=== PATIENT | male | born 1930 | race Caucasian/White ===

== ENCOUNTER 2017-11-23 19:50 | Inpatient (IN) | payer OTHER, MEDICARE ==
[~2017-11-23] VITALS: Ht 185.4 cm; Wt 96.8 kg
--- NOTE | 2017-11-23 19:53 | ED GI/GU/ABDOMINAL COMPLAINT ---
History of Present Illness General Chief Complaint: Abdominal Pain/Flank Pain Stated Complaint: L SIDED UPPER ABD Source: patient, family, EMS Exam Limitations: no limitations Vital Signs & Intake/Output Vital Signs & Intake/Output Vital Signs Date Time Temp Pulse Resp B/P B/P Pulse O2 O2 Flow FiO2 Mean Ox Delivery Rate 11/26 0000 Nasal 3.0L Cannula 11/25 2246 98.7 63 24 107/75 96 Nasal 3.0L Cannula 11/25 2033 94 Nasal 3.0L Cannula 11/25 1600 94 Nasal 3.0L Cannula 11/25 1508 98.1 107 18 150/98 96 Nasal 3.0L Cannula 11/25 1121 95 Nasal 3.0L Cannula 11/25 0937 80 142/80 11/25 0800 93 Nasal 3.0L Cannula ED Intake and Output 11/26 0000 11/25 1200 Intake Total 970 490 Output Total 150 Balance 970 340 Intake, IV 250 250 Intake, Oral 720 240 Output, Urine 150 Patient 222 lb Weight Weight Bed scale Measurement Method Allergies Coded Allergies: No Known Allergies (11/23/17) Reconcile Medications Aspirin (Ecotrin*) 81 MG TABLET.DR 1 TAB PO DAILY HEART/BLOOD (Reported) Cholecalciferol (Vitamin D3) (Vitamin D) (Unknown Strength) CAPSULE (Unknown Dose) PO DAILY SUPPLEMENT (Reported) Lisinopril 5 MG TABLET 1 TAB PO DAILY BP (Reported) Sertraline HCl 25 MG TABLET 1 TAB PO DAILY MENTAL HEALTH (Reported) Tiotropium Hampton (Spiriva) 18 MCG CAP.W.DEV 1 CAP INH DAILY COPD (Reported) Triage Nurses Notes Reviewed? yes HPI: 87 y/o male with history of HTN, COPD, Waldenstrom macroglobulinemia on rituxin every other month who presents from home via EMS for sudden onset of respiratory distress and left sided chest pain at 6 pm after eating dinner. He states the pain started first. NO fever or chills. He denies vomiting or aspirating. No trauma at home. Daughter reports he has been doing fine until this evening. Past History Travel History Traveled to [place] past 21 day No Medical History Any Pertinent Medical History? see below for history Cardiovascular: hypertension Respiratory: COPD Blood Disorders: waldenstrom macroglobulimenia Surgical History Surgical History: non-contributory Psychosocial History What is your primary language Niuean Family History Hx Contributory? No Review of Systems Review of Systems Constitutional: Denies: chills, fever. EENTM: Reports: no symptoms. Respiratory: Reports: cough, short of breath. Denies: sputum production. Cardiovascular: Reports: chest pain. GI: Reports: abdominal pain. Genitourinary: Reports: no symptoms. Musculoskeletal: Reports: back pain. Skin: Reports: no symptoms. Neurological/Psychological: Reports: no symptoms. Hematologic/Endocrine: Denies: bruising, bleeding, polyuria, polydipsia. Immunologic/Allergic: Reports: no symptoms. All Other Systems: Reviewed and Negative Physical Exam Physical Exam General Appearance: well developed/nourished, alert, awake, anxious, mild distress, moderate distress Head: atraumatic, normal appearance Eyes: Bilateral: normal appearance, PERRL, EOMI. Ears, Nose, Throat, Mouth: hearing grossly normal, moist mucous membrane Neck: normal inspection, supple, full range of motion Respiratory: decreased breath sounds, accessory muscle use, crackles, rhonchi, respiratory distress, LEFT CHEST WALL TENDERNESS Cardiovascular: regular rate/rhythm, normal peripheral pulses Peripheral Pulses: 2+ radial (R), 2+ radial (L) Gastrointestinal: normal bowel sounds, soft, non-tender Back: normal inspection, normal range of motion Extremities: normal range of motion Neurologic/Psych: no motor/sensory deficits, awake, alert, oriented x 3 Skin: intact, normal color, warm/dry Core Measures ACS in differential dx? Yes Sepsis Present: No Sepsis Focused Exam Completed? No ED Sepsis Exam Date of Focused Sepsis Exam: 11/23/17 Time of Focused Sepsis Exam: 1954 Sepsis Cardiac Exam: Tachycardia Sepsis Resp Exam: Ronchi Sepsis Cap Refill Exam: <2 Sec Sepsis Peripheral Pulse Exam: Normal Sepsis Peripheral Pulse Location: Posterior Tibialis Sepsis Skin Color Exam: Cyanotic Skin Temp/Moisture Exam: Warm/Dry Progress Differential Diagnosis: AMI, PNEUMONIA, BRONCHITIS, PE, AMI, KIDNEY STONE, PYELONEPHRITIS, Plan of Care: Orders Procedure Date/time Status XRY-PORTABLE CHEST XRAY 11/26 599 Active CBC WITHOUT DIFFERENTIAL 11/26 599 Active BASIC ELECTROLYTES PLUS BUN&CR 11/26 599 Active Precautions 11/25 1442 Active Current Medications Sig/Eduin Start time Last Medication Dose Stop Time Status Admin Azithromycin 500 MG Q24H 11/25 2300 AC 11/25 (Zithromax) 2213 Dextrose/Water 250 ML (D5W) Albuterol Sulfate 3 ML BID 11/24 2199 AC 11/25 (Proventil) 2028 Senna 187 MG AT BEDTIME 11/24 2199 AC 11/25 (Senokot) 221 Docusate Sodium 100 MG DAILY NEEDED PRN 11/25 1999 AC 11/25 (Colace) 0936 Polyethylene Glycol 17 GM DAILY 11/24 1956 AC 11/25 (Miralax) 0936 Aspirin Buffered 81 MG DAILY 11/24 1000 AC 11/25 (Ecotrin) 0937 Ceftriaxone Sodium 1,000 MG DAILY 11/24 1000 AC 11/25 (Rocephin) 0936 Cholecalciferol 1,000 IU DAILY 11/24 1000 AC 11/25 (Vitamin D) 0937 Lisinopril 5 MG DAILY 11/24 1000 AC 11/25 (Prinivil) 0937 Sertraline HCl 25 MG DAILY 11/24 1000 AC 11/25 (Zoloft) 0937 Tiotropium Hampton 1 PUF DAILY 11/24 1000 AC 11/25 (Spiriva) 0943 Acetaminophen 1,000 MG Q6P PRN 11/23 2330 AC (Ofirmev) N/A 1 UNIT (No Carrier) Acetaminophen 650 MG Q6P PRN 11/23 2315 AC 11/24 (Tylenol) 1855 Heparin Sodium 5,000 UNIT Q8 11/23 2314 AC 11/26 (Porcine) 0518 Laboratory Tests 11/25/17 1000: Fluid WBC Cancelled, Fld Total RBCs Counted Cancelled 11/25/17 1000: Fluid Albumin Cancelled 11/25/17 0700: Fluid Total Protein Cancelled 11/25/17 0656: Anion Gap 13, Estimated GFR > 60, BUN/Creatinine Ratio 37.8 H, PT 12.7 H, INR 1.16, APTT 33, CBC w Diff MAN DIFF ORDERED, RBC 4.43 L, MCV 86.9, MCH 29.0, MCHC 33.4, RDW 14.5, MPV 9.2, Gran % 91.1 H, Lymphocytes % 5.3 L, Monocytes % 3.5, Eosinophils % 0.1, Basophils % 0, Absolute Granulocytes 22.4 H, Segmented Neutrophils 88 H, Band Neutrophils 8 H, Absolute Lymphocytes 1.3, Lymphocytes 1 L, Monocytes 3, Absolute Monocytes 0.9 H, Absolute Eosinophils 0, Absolute Basophils 0, Platelet Estimate ADEQUATE, Normocytic RBCs VERIFIED, Normochromic RBCs VERIFIED Microbiology 11/25 699 BODY FLUID: Body Fluid Culture - CAN Cancelled: Cancelled via OE: Per Decision 11/25 699 BODY FLUID: Gram Stain - CAN Cancelled: Cancelled via OE: Per MD Decision Diagnostic Imaging: Viewed by Me: Radiology Read, CT Scan. Discussed w/RAD: Radiology Read, CT Scan. Radiology Impression: PATIENT: VINCENZO AVELAR PRESENT AGE: 87 PATIENT ACCOUNT NO: [id number] : 32 LOCATION: [facility] ORDERING PHYSICIAN: Erica Mathis MD SERVICE DATE: 11/23/17 EXAM TYPE: CAT - CTA CHEST-PULMONARY EMBOLISM EXAMINATION: CT PULMONARY EMBOLISM STUDY CLINICAL INFORMATION: Left-sided pain. Non-Hodgkin's lymphoma. COMPARISON: 02/20/2017. TECHNIQUE: Contiguous helical images of the chest were obtained following the administration of IV contrast. Multiplanar reconstructions were performed. MIPS were obtained and reviewed. DLP: 962 mGy-cm. CONTRAST: 120 mL of Optiray 350 were administered without incident. FINDINGS: The heart is of normal size. There is no pericardial effusion. The great vessels are unremarkable. Specifically, there is no pulmonary arterial filling defect. There is no CT evidence for pulmonary embolism. There are no chest wall masses. Review of lung windows demonstrates a yzavi-ex-qxyatomb left pleural effusion. There is associated passive atelectasis within the left lower lobe. There is apparent atelectasis within the right lower lobe. Limited evaluation of the upper abdomen demonstrates that the liver is of normal size and attenuation without focal lesions. There is a 16 mm calculus within the gallbladder lumen. There is no gallbladder wall thickening or pericholecystic fluid. Normal adrenal glands are identified. IMPRESSION: No CT evidence for pulmonary embolism. [id number] left pleural effusion with associated airspace disease. Cholelithiasis without evidence of cholecystitis. DICTATED BY: iCrilo Oneal MD DATE/TIME DICTATED:11/11 GUN PERFORATOR LOADER:DEBO DATE/TIME TRANSCRIBED:11/23/172228 CONFIDENTIAL, DO NOT COPY WITHOUT APPROPRIATE AUTHORIZATION. <Electronically signed in Other Vendor System> SIGNED BY: Cirilo Oneal MD 11/23/172236 CXR Impression: PATIENT: VINCENZO AVELAR PRESENT AGE: 87 PATIENT ACCOUNT NO: [id number] : 32 LOCATION: [facility] ORDERING PHYSICIAN: Erica Mathis MD SERVICE DATE: 11/23/17 EXAM TYPE: RAD - XRY-PORTABLE CHEST XRAY EXAMINATION: XR PORTABLE CHEST CLINICAL INFORMATION: Respiratory distress, left-sided chest pain COMPARISON: None TECHNIQUE: Portable frontal view of the chest was obtained. FINDINGS: Hypoinflation with basilar atelectasis. Lower lobe opacity is asymmetrically prominent on the left suggesting there may be a left lower lobe consolidation or effusion. The cardiac silhouette is partially obscured. IMPRESSION: Bibasilar atelectasis and possible left lower lobe pneumonia or effusion DICTATED BY: Cole Wheeler MD DATE/ TIME DICTATED:11/23/172107 GUN PERFORATOR LOADER:DEBO DATE/TIME TRANSCRIBED: 11/23/172107 CONFIDENTIAL, DO NOT COPY WITHOUT APPROPRIATE AUTHORIZATION. < Electronically signed in Other Vendor System> SIGNED BY: Cole Wheeler MD 11/23/172112 Initial ED EKG: SINUS TACHYCARDIA Rhythm Strip: sinus tachycardia Departure Departure Disposition: STILL A PATIENT Condition: Stable Clinical Impression Primary Impression: Pneumonia Secondary Impressions: Respiratory distress Referrals: Pedrito Nelson MD (PCP/Family) Departure Forms: Customer Survey General Discharge Information Admission Note Spoke With: Lopez Cruz MD Documentation of Exam: Documentation of any treatments & extenuating circumstances including Concerns Regarding Discharge (functional status, medication knowledge or non-compliance, living conditions, etc.) that warrant an admission rather than observation: [TRC /NEBS, IV STEROIDS, IV ABX, MONITOR I/O, OXYGEN SUPPLEMENTATION, F/U CULTURES] Critical Care Note Critical Care Note Critical Care Time: 30-74 min
[2017-11-23 20:32] LABS: ABSOLUTE BASOPHIL COUNT 0 /CUMM (0.0-0.2); ABSOLUTE EOSINOPHIL COUNT 0.2 /CUMM (0.0-0.7); ABSOLUTE GRANULOCYTE CT 19.4 /CUMM (1.4-6.5); ABSOLUTE LYMPH COUNT 4.8 /CUMM (1.2-3.4); ABSOLUTE MONOCYTE COUNT 0.8 /CUMM (0.10-0.60); BASOPHIL % 0.2 % (0.0-2.0); EOSINOPHIL % 0.7 % (0-5); GRANULOCYTE % 76.9 % (42.2-75.2); HEMATOCRIT 42.6 % (42-52); MEAN CORPUSCULAR HGB 28.7 PG (27.0-31.0); MEAN CORPUSCULAR HGB CONC 33.6 G/DL (33.0-37.0); MEAN CORPUSCULAR VOLUME 85.4 FL (80.0-94.0); PLATELET COUNT 399 /CUMM (130-400); RBC DISTRIBUTION WIDTH 14.1 % (11.5-14.5); RED BLOOD CELL CT 4.99 /CUMM (4.70-6.10); WHITE BLOOD CELL COUNT 25.2 /CUMM (4.8-10.8)
[2017-11-23 20:47] LABS: PTT 29 SEC (25-37)
--- NOTE | 2017-11-23 21:13 | RADIOLOGY REPORT ---
EXAMINATION: XR PORTABLE CHEST CLINICAL INFORMATION: Respiratory distress, left-sided chest pain COMPARISON: None TECHNIQUE: Portable frontal view of the chest was obtained. FINDINGS: Hypoinflation with basilar atelectasis. Lower lobe opacity is asymmetrically prominent on the left suggesting there may be a left lower lobe consolidation or effusion. The cardiac silhouette is partially obscured. IMPRESSION: Bibasilar atelectasis and possible left lower lobe pneumonia or effusion
[2017-11-23] MEDS ORDERED: SPIRIVA18 MCG INH (21:29)
[2017-11-23] MEDS ORDERED: VITAMIN D2000 UNIT PO (21:29)
[2017-11-23] MEDS ORDERED: SERTRALINE HCL25 MG PO (21:29)
[2017-11-23] MEDS ORDERED: ASPIRIN EC81 M1 PO (21:29)
[2017-11-23] MEDS ORDERED: LISINOPRIL5 M1 PO (21:29)
--- NOTE | 2017-11-23 22:37 | CT SCAN REPORT ---
EXAMINATION: CT PULMONARY EMBOLISM STUDY CLINICAL INFORMATION: Left-sided pain. Non-Hodgkin's lymphoma. COMPARISON: 02/20/2017. TECHNIQUE: Contiguous helical images of the chest were obtained following the administration of IV contrast. Multiplanar reconstructions were performed. MIPS were obtained and reviewed. DLP: 962 mGy-cm. CONTRAST: 120 mL of Optiray 350 were administered without incident. FINDINGS: The heart is of normal size. There is no pericardial effusion. The great vessels are unremarkable. Specifically, there is no pulmonary arterial filling defect. There is no CT evidence for pulmonary embolism. There are no chest wall masses. Review of lung windows demonstrates a yhuua-zo-ugnziprl left pleural effusion. There is associated passive atelectasis within the left lower lobe. There is apparent atelectasis within the right lower lobe. Limited evaluation of the upper abdomen demonstrates that the liver is of normal size and attenuation without focal lesions. There is a 16 mm calculus within the gallbladder lumen. There is no gallbladder wall thickening or pericholecystic fluid. Normal adrenal glands are identified. IMPRESSION: No CT evidence for pulmonary embolism. [id number] left pleural effusion with associated airspace disease. Cholelithiasis without evidence of cholecystitis.
--- NOTE | 2017-11-23 22:54 | CT SCAN REPORT ---
EXAMINATION: CT ABDOMEN AND PELVIS WITH CONTRAST CLINICAL INFORMATION: Severe left abdominal pain. COMPARISON: 02/20/2017 PET/CT. TECHNIQUE: Multidetector volumetric imaging was performed of the abdomen and pelvis following IV administration of 120 mL of Optiray 350 intravenous contrast. Sagittal and coronal reformatted images were obtained on the technologist's workstation. DLP: 963 mGy-cm FINDINGS: LUNG BASES: Left basilar atelectasis/consolidation and small pleural effusion. LIVER, GALLBLADDER, AND BILIARY TREE: Diffuse fatty infiltration of liver. Cholelithiasis. No biliary ductal dilatation. PANCREAS: Unremarkable. SPLEEN: Unremarkable. ADRENAL GLANDS: Unremarkable. KIDNEYS AND URETERS: There are several subcentimeter cortical cysts bilaterally. Nephrograms are symmetric. No hydronephrosis or calculi. BLADDER: Unremarkable. GASTROINTESTINAL TRACT: The small and large bowel are unremarkable. The appendix is not identified. ABDOMINAL WALL: Incompletely descended left testis along the left spermatic cord, unchanged. LYMPH NODES: Normal. VASCULAR: Atherosclerotic calcifications. PELVIC VISCERA: Enlarged and heterogeneous prostate. OSSEOUS STRUCTURES: Severe degenerative disc disease at L4-L5. IMPRESSION: No focal inflammatory process or obstruction. Cholelithiasis. Diffuse fatty infiltration of liver. Incompletely descended left testicle, unchanged. Small left basilar consolidation and pleural effusion.
--- NOTE | 2017-11-23 23:07 | History & Physical ---
German Ascencio MD 11/23/17 0447: General Information and HPI MD Statement: I have seen and personally examined VINCENZO AVELAR and documented this H&P. The patient is a 87 year old M who presented with a patient stated chief complaint of [R sided chest pain and SOB]. Source of Information: patient, family Exam Limitations: dementia History of Present Illness: Patient is an 87-year-old male with a PMH significant for HTN, COPD, Waldenstrom 's macroglobulinemia, vascular dementia who was brought in by ambulance for left -sided chest pain and dyspnea. History was obtained from patient's daughter and GUERLINE Pace. Patient was apparently in his usual state of health up until the evening of admission at approximately 1930 p.m. Patient's whom he lives with called her daughter stating that the patient was having difficulty breathing and complaining of chest pain. When the daughter arrived house the patient was delivered over in pain and having difficulty breathing. She visits the house regularly and states that she had noted no change in breathing and the patient had not been complaining of any new symptoms prior to the onset of chest pain shortness of breath. He has a chronic cough secondary to COPD which had not worsened recently. He is able to take in a regular diet and has not been witnessed choking on his food or coughing after swallowing. He had not had any nausea, vomiting, fever, chills, diarrhea. He also had no sick contacts. Allergies/Medications Allergies: Coded Allergies: No Known Allergies (11/23/17) Home Med list Aspirin (Ecotrin*) 81 MG TABLET.DR 1 TAB PO DAILY HEART/BLOOD (Reported) Cholecalciferol (Vitamin D3) (Vitamin D) (Unknown Strength) CAPSULE (Unknown Dose) PO DAILY SUPPLEMENT (Reported) Lisinopril 5 MG TABLET 1 TAB PO DAILY BP (Reported) Sertraline HCl 25 MG TABLET 1 TAB PO DAILY MENTAL HEALTH (Reported) Tiotropium [place] (Spiriva) 18 MCG CAP.W.DEV 1 CAP INH DAILY COPD (Reported) Past History Travel History Traveled to [place] past 21 day No Medical History Neurological: dementia Cardiovascular: hypertension Respiratory: COPD Blood Disorders: waldenstrom macroglobulimenia Surgical History Surgical History: non-contributory Past Family/Social History Family History Relations & Conditions if any Relation not specified for: FH: diabetes mellitus Psychosocial History Where do you live? Home Who Do You Live With? spouse Services at Home: daughter comes twice per day to assist with medications Primary Language: Icelandic Smoking Status: Former Smoker (50+ pack years) ETOH Use: denies use Illicit Drug Use: denies illicit drug use Living Will? yes Functional Ability Ambulation: cane IADLs Needs Assist: medication admin. Review of Systems Review of Systems Constitutional: Denies: chills, fever. EENTM: Reports: no symptoms. Cardiovascular: Reports: chest pain (L sided chest pain). Respiratory: Reports: cough, short of breath. GI: Reports: no symptoms. Genitourinary: Reports: no symptoms. Musculoskeletal: Reports: no symptoms. Exam & Diagnostic Data Last 24 Hrs of Vital Signs/I&O Vital Signs Date Time Temp Pulse Resp B/P B/P Pulse O2 O2 Flow FiO2 Mean Ox Delivery Rate 11/231 98.1 96 20 160/82 95 11/23 2317 98.9 92 24 132/65 94 Nasal 2.0L Cannula 11/23 2122 99.3 109 26 151/76 11/23 2008 94 11/23 1959 98.7 104 26 145/100 94 Room Air Intake & Output 11/24 0800 11/24 0000 11/23 1600 Intake Total 115 Output Total Balance 115 Intake, IV 115 Patient 200 lb Weight Weight Reported by Patient Measurement Method Physical Exam General Appearance Alert, Cooperative, No Acute Distress, oriented to person and time but not place Skin Temp/Moisture Exam: Warm/Dry Sepsis Skin Exam (color): Normal for Ethnicity Neck No JVD Cardiovascular Regular Rate, Normal S1, Normal S2 Lungs diffuse rhonchi worse on the L lower lung field Abdomen Normal Bowel Sounds, Soft, No Tenderness Neurological Normal Speech, Normal Tone, Sensation Intact, Cranial Nerves 3-12 NL Extremities No Clubbing, No Cyanosis, No Edema Last 24 Hrs of Labs/Luis F: Laboratory Tests 11/23/17 2030: pH 7.42, pCO2 26 L, pO2 66 L, HCO3 17 L, ABG O2 Sat (Measured) 93.0 L, P-50 (Temp Corrected) N, Carboxyhemoglobin 0.3 L, O2 Concentration % RA/, Temperature 98.7, Phlebotomy Draw Site RIGHT BRACHIAL 11/23/17 2020: Anion Gap 14, Estimated GFR > 60, BUN/Creatinine Ratio 20.0, Glucose 211 H, Lactic Acid 1.9, Calcium 9.5, Total Bilirubin 1.3, AST 20, ALT 31, Alkaline Phosphatase 113, Troponin I < 0.01, Ooa-A-Wgcwkiojivt Pept 309 H, Total Protein 7.2, Albumin 4.1, Globulin 3.1, Albumin/Globulin Ratio 1.3, PT 12.0, INR 1.14, APTT 29, D-Dimer High Sensitivty 399 H, CBC w Diff MAN DIFF ORDERED, RBC 4.99, MCV 85.4, MCH 28.7, MCHC 33.6, RDW 14.1, MPV 8.0, Gran % 76.9 H, Lymphocytes % 19.2 L, Monocytes % 3.0, Eosinophils % 0.7, Basophils % 0.2, Absolute Granulocytes 19.4 H, Segmented Neutrophils 67, Band Neutrophils 8 H, Absolute Lymphocytes 4.8 H, Lymphocytes 21, Monocytes 2, Absolute Monocytes 0.8 H, Eosinophils 1, Absolute Eosinophils 0.2, Basophils 1, Absolute Basophils 0, Platelet Estimate ADEQUATE, Normocytic RBCs VERIFIED, Normochromic RBCs VERIFIED Microbiology 11/25 31 URINE ROUT: Legionella Antigen - ORD 11/25 31 URINE ROUT: Streptococcus pneumoniae Antigen (M - ORD 11/23 2133 NASOPHARYN: Influenza Virus A & B Rapid Smear - COMP 11/23 2099 BLOOD: Blood Culture - RECD 11/24 2019 BLOOD: Blood Culture - RECD Diagnostic Data EKG Results sinus tachy, HR 109, RBBB, QTc 475, Normal axis CXR Results Bibasilar atelectasis and possible left lower lobe pneumonia or effusion Other Results CTA chest No CT evidence for pulmonary embolism. Xvayd-mu-gmzijfqx left pleural effusion with associated airspace disease. Cholelithiasis without evidence of cholecystitis. CT abd/pelvis No focal inflammatory process or obstruction. Cholelithiasis. Diffuse fatty infiltration of liver. Incompletely descended left testicle, unchanged. Small left basilar consolidation and pleural effusion. Assessment/Plan Assessment: Patient is an 87-year-old male with a PMH significant for HTN, COPD, Waldenstrom 's macroglobulinemia, vascular dementia who was brought in by ambulance for left -sided chest pain and dyspnea. Patient was in his usual state of health until this evening when he began to have left-sided chest pain shortness of breath. SOB appears to be related to the chest pain as his pain is under control he is breathing normally. CXR showing bibasilar atelectasis left lower lobe opacity. Labs significant for WBC 25.2, bandemia, d-dimer 399(PE ruled out by CTA chest), ABG 7.42// Problem list #Pneumonia #Chronic problems including HTN, COPD, Waldenstrom macroglobulinemia on Rituxan, dementia Plan -Admit to general medicine floor -IV azithromycin and ceftriaxone -Follow-up blood and sputum cultures -Lactic acid -Urine antigens for strep pneumonia and legionella -TRC/nebs Diet: Heart healthy DVT prophylaxis: Subcutaneous heparin, ALPS CODE STATUS: DNR/DNI As Ranked By This Provider Problem List: 1. Pneumonia Core Measures/Misc (06/10) Acute Coronary Syndrome ACS Diagnosis: No Congestive Heart Failure Congestive Heart Failure Diagnosis No Cerebrovascular Accident CVA/TIA Diagnosis: No VTE (View Protocol) VTE Risk Factors Cancer/chemo/othr therapy No Mechanical VTE Prophylaxis d/t N/A MechProphylax Ordered No VTE Pharm Prophylaxis d/t NA PharmProphylax ordered Sepsis (View protocol) Sepsis Present: No Roya Magana MD 11/24/17 0018: Resident Review Statement Resident Statement: examined this patient, discussed with application internship, agreed with application internship, discussed with family, reviewed EMR data (avail), reviewed images, amended to note Other Findings: 87-year-old male with past medical history of hypertension, Waldenstrom's macroglobulinemia on Rituxin, COPD not on home O2 and dementia brought in by EMS for acute onset of severe left-sided chest pain and dyspnea which started this evening after he finished dinner around 6 PM. Patient lives at home with and history is provided by the daughter. She denies any fevers or chills, chest trauma, nausea or vomiting or diarrhea, or sick contacts. He has a baseline nonproductive cough and wheezing. Pt gets [facility]. 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 Vitals-temperature 99.3, heart rate of 109, respiratory rate 25, blood pressure 151/76, saturating 94% on room air On exam patient is AAO 2, rhonchi and left lower chest wall and generalized coarse breath sounds and wheezing throughout, nondistended abdomen, normal bowel sounds, no pedal edema Pertinent labs-white count of 25.2 with 8 bands ABG-7.42/26/66/17/93 Chest x-ray consistent with possible left lower lobe consolidation and atelectasis CTA negative for PE, small to mod left pleural effusion and airspace disease CT abdomen pelvis shows no acute abnormalities Assessment Community-acquired pneumonia COPD not in exacerbation Hypertension Dementia Waldenstrom's macroglobulinemia on Rituxin Plan Admit to the general medicine floor IV ceftriaxone and azithromycin Patient received 125mg of IV Solu-Medrol in the ER; will hold of steroids for now. Re-evaluate in am Sputum and blood cultures Check urine Legionella and strep pneumo antigens Check lactate levels Trend trops and EKG TRC nebs Oxygen for comfort Consider Pulmonary consult per family request Resume patient's home medications Subcutaneous heparin for DVT prophylaxis Pain control with IV Tylenol DNR/DNI Follow attending recommendations Lopez Cruz 11/24/17 0152: Attending MD Review Statement Attending Statement Attending MD Statement: examined this patient, discuss w/resident/PA/MANAGER ANIMATION, agreed w/resident/PA/MANAGER ANIMATION, reviewed EMR data (avail), reviewed images, amended to note Attending Assessment/Plan: CC: Left sided chest/abdomen pain PMH: HTN, COPD, dementia, Waldenstrm's macroglobulinemia on rituximab, Low- grade non-Hodgkin's lymphoma History is obtained from patient's daughter. After dinner today patient complained of severe left-sided chest pain/upper abdominal pain associated with difficulty breathing, shallow breathing and distress. Daughter lives next door, patient's called her when patient complained of these symptoms and patient appeared sick so they rushed him to ER. Patient has chronic cough which has not changed recently, chronic wheezing which is unchanged. There are no sick contacts. Other than the pain patient does not offer any other symptoms. Review of systems is limited but grossly unremarkable. No choking on food, no nausea, no vomiting or presyncopal episode. Vitals: T max 99.3, pulse 104, RR 26, blood pressure 140/ 100 on arrival improved to 132/65, saturating 94% on 2 L nasal cannula On exam: A O 2, cooperative, no acute distress, neck supple, JVD normal, no lymphadenopathy, mucosa dry, no focal neurological deficit, trace leg edema, no obvious skin rashes or inflammation CVS: S1-S2, RRR. RS: Rhonchi left base, no obvious wheezing. Abdomen: Soft, NT, ND, bowel sounds present. CTA chest, CT abdomen and pelvis with IV contrast: No CT evidence for pulmonary embolism. Qllzw-mc-gfivqtdt left pleural effusion with associated airspace disease. No focal inflammatory process or obstruction. Cholelithiasis. Diffuse fatty infiltration of liver. Incompletely descended left testicle, unchanged. Small left basilar consolidation and pleural effusion. Assessment and plan 87-year-old male with past medical history significant for HTN, COPD, dementia, Waldenstrm's macroglobulinemia on rituximab presented in the ER for sudden onset left-sided upper abdominal pain, chest pain associated with mild respiratory distress, shallow breathing. Patient has chronic cough and wheezing which is unchanged, no sick contacts, no choking. On auscultation patient has significant rhonchi on left base, no obvious wheezing heard. He is found to have significant leukocytosis and left shift, mild metabolic acidosis, hypoxia on ABG. ProBNP was 309, not significant and d-dimer 399. CTA chest ruled out pulmonary embolism but has suspicion of left sided pneumonia with mild to moderate pleural effusion. + Left lower lobe pneumonia + Left pleural effusion + History of HTN, COPD, dementia, Waldenstrm's macroglobulinemia on rituximab - Admit to general medicine - Continue O2 by nasal cannula - IV ceftriaxone and azithromycin - TRC nebulization - Strep and Legionella antigen - Obtain lactic acid - Blood culture, sputum culture if possible - Consult IR for thoracentesis (patient has history of malignancy) - 1 more set of troponin and EKGs - DVT prophylaxis with heparin - add hemoglobin A1c to the sampling - Continue rest of his home medications - Reassess for need of IV methylprednisolone in a.m. if patient has significant wheezing or hypoxia
[2017-11-23 23:51] VITALS: BP 160/82
--- NOTE | 2017-11-24 01:53 | Admission Certification ---
Admission Certification Certification Statement - As attending physician, I certify that at the time of - admission, based on clinical presentation, severity of - symptoms, need for further diagnostic testing and - therapeutic interventions, and risk of adverse outcomes - without in-hospital treatment, in my clinical assessment, - this patient requires an acute hospital stay for a minimum - of two nights or longer. I have also considered psychsocial - factors such as support system, advanced age, financial - issues, cognitive issues, and failed out-patient treatments, - past re-admission history, safety of patient, and lack of - compliance as applicable. Specific rationale supporting this admission is: Left lower lobe pneumonia
--- NOTE | 2017-11-24 06:03 | PN- Housestaff ---
Subjective Follow-up For: CAP with L pleural effusion in setting of cancer diagonsis Subjective: Patient was seen and examined at bedside. He is resting comfortably. He had no acute events overnight. He continues to complain of left-sided chest pain. He denies any palpitations, shortness breath, nausea, vomiting, fever, chills. Review of Systems Constitutional: Denies: chills, fever. Cardiovascular: Reports: chest pain. Denies: palpitations, peripheral edema. Respiratory: Reports: cough, wheezing. Denies: short of breath. Gastrointestinal: Reports: no symptoms. Genitourinary: Reports: no symptoms. Musculoskeletal: Reports: no symptoms. Objective Last 24 Hrs of Vital Signs/I&O Vital Signs Date Time Temp Pulse Resp B/P B/P Pulse O2 O2 Flow FiO2 Mean Ox Delivery Rate 11/24 0000 95 Nasal 2.0L Cannula 11/23 2351 98.1 96 20 160/82 95 11/23 2317 98.9 92 24 132/65 94 Nasal 2.0L Cannula 11/233 99.3 109 26 151/76 11/23 2008 94 11/23 1959 98.7 104 26 145/100 94 Room Air Intake & Output 11/24 0800 11/24 0000 11/23 1600 Intake Total 115 Output Total Balance 115 Intake, IV 115 Patient 209 lb Weight Weight Reported by Patient Measurement Method Physical Exam General Appearance: Alert, Cooperative, No Acute Distress, oriented to person and time but not place Skin Temp/Moisture Exam: Warm/Dry Cardiovascular: Regular Rate, Normal S1, Normal S2, L sided chest wall in mid axillary line is TTP Lungs: Rhonchi in the L lower lung field Abdomen: Normal Bowel Sounds, Soft, No Tenderness Neurological: Normal Speech, Normal Tone, Sensation Intact Extremities: No Clubbing, No Cyanosis, No Edema Current Medications: Current Medications Sig/Eduin Start time Last Medication Dose Route Stop Time Status Admin Acetaminophen 1,000 MG Q6P PRN 11/23 2330 AC N/A 1 UNIT IV Acetaminophen 650 MG Q6P PRN 11/23 2315 AC PO Albuterol Sulfate 3 ML ONCE ONE 11/23 2014 DC 11/23 INH 11/23 Albuterol Sulfate 3 ML ONCE ONE 11/23 2014 DC 11/23 INH 11/23 Albuterol Sulfate 3 ML ONCE ONE 11/24 1999 DC 11/23 INH 11/23 Aspirin Buffered 81 MG DAILY 11/24 1000 AC PO Azithromycin 500 MG Q24H 11/23 2314 AC Sodium Chloride 250 ML IV Azithromycin 500 MG ONCE ONE 11/23 2114 DC 11/23 Dextrose/Water 250 ML IV 11/23 2213 222 Ceftriaxone Sodium 1,000 MG DAILY 11/24 1000 AC IV Ceftriaxone Sodium 0 .STK-MED ONE 11/23 2146 DC .ROUTE Ceftriaxone Sodium 1,000 MG ONCE ONE 11/23 2114 DC 11/23 IV 11/23 Cholecalciferol 1,000 IU DAILY 11/24 1000 AC PO Heparin Sodium 5,000 UNIT Q8 11/23 231 AC 11/24 (Porcine) SC 0517 Ipratropium [place] 2.5 ML ONCE ONE 11/24 1999 DC 11/23 INH 11/23 Lisinopril 5 MG DAILY 11/24 1000 AC PO Magnesium Sulfate 1 GM ONCE ONE 11/23 2014 DC 11/23 Dextrose/Water 100 ML IV 11/24 13 2020 Methylprednisolone 60 MG DAILY 11/24 1000 CAN IV Methylprednisolone 125 MG ONCE ONE 11/23 2014 DC 11/23 IV 11/23 Methylprednisolone 0 .STK-MED ONE 11/24 2011 DC .ROUTE Morphine Sulfate 4 MG ONCE ONE 11/23 2044 DC 11/23 IV 11/23 Morphine Sulfate 0 .STK-MED ONE 11/23 2041 DC .ROUTE Morphine Sulfate 2 MG ONCE ONE 11/23 2014 DC 11/23 IV 11/23 Morphine Sulfate 0 .STK-MED ONE 11/24 2011 DC .ROUTE Sertraline HCl 25 MG DAILY 11/24 1000 AC PO Sodium Chloride 1,000 ML .Q20H 11/23 2314 DC IV Tiotropium [place] 1 PUF DAILY 11/24 1000 AC INH Last 24 Hrs of Lab/Luis F Results Last 24 Hrs of Labs/Mics: Laboratory Tests 11/24/17 020: Troponin I < 0.01 11/23/172029: pH 7.42, pCO2 26 L, pO2 66 L, HCO3 17 L, ABG O2 Sat (Measured) 93.0 L, P-50 (Temp Corrected) N, Carboxyhemoglobin 0.3 L, O2 Concentration % RA/, Temperature 98.7, Phlebotomy Draw Site RIGHT BRACHIAL 11/23/172019: Anion Gap 14, Estimated GFR > 60, BUN/Creatinine Ratio 20.0, Glucose 211 H, Lactic Acid 1.9, Calcium 9.5, Total Bilirubin 1.3, AST 20, ALT 31, Alkaline Phosphatase 113, Troponin I < 0.01, Zqa-Z-Bjyjonzjbau Pept 309 H, Total Protein 7.2, Albumin 4.1, Globulin 3.1, Albumin/Globulin Ratio 1.3, PT 12.0, INR 1.14, APTT 29, D-Dimer High Sensitivty 399 H, CBC w Diff MAN DIFF ORDERED, RBC 4.99, MCV 85.4, MCH 28.7, MCHC 33.6, RDW 14.1, MPV 8.0, Gran % 76.9 H, Lymphocytes % 19.2 L, Monocytes % 3.0, Eosinophils % 0.7, Basophils % 0.2, Absolute Granulocytes 19.4 H, Segmented Neutrophils 67, Band Neutrophils 8 H, Absolute Lymphocytes 4.8 H, Lymphocytes 21, Monocytes 2, Absolute Monocytes 0.8 H, Eosinophils 1, Absolute Eosinophils 0.2, Basophils 1, Absolute Basophils 0, Platelet Estimate ADEQUATE, Normocytic RBCs VERIFIED, Normochromic RBCs VERIFIED Microbiology 11/25 515 URINE ROUT: Legionella Antigen - RECD 11/25 515 URINE ROUT: Streptococcus pneumoniae Antigen (M - RECD 11/23 2133 NASOPHARYN: Influenza Virus A & B Rapid Smear - COMP 11/23 2099 BLOOD: Blood Culture - RECD 11/24 2019 BLOOD: Blood Culture - RECD Assessment/Plan Assessment: Patient is an 87-year-old male with a PMH significant for HTN, COPD, Waldenstrom 's macroglobulinemia, vascular dementia who was brought in by ambulance for left -sided chest pain and dyspnea. Patient was in his usual state of health until this evening when he began to have left-sided chest pain shortness of breath. SOB appears to be related to the chest pain as his pain is under control he is breathing normally. CXR showing bibasilar atelectasis left lower lobe opacity with pleural effusion. PE ruled out with CTA Chest Urine legionalle and strep pneumoniae ag negative Problem list #CAP #Chronic problems including HTN, COPD, Waldenstrom macroglobulinemia on Rituxan, dementia Plan - continue IV azithromycin and ceftriaxone -wean off of O2 as tolerated - no significant wheezing and saturating well on 2 L O2 NC, no need to initiate steroids -Follow-up blood and sputum cultures -TRC/nebs -patient will need diagnostic paracentesis of L pleural effusion in the setting of malignancy. An IR consult will be placed on Sunday morning and the pt will be NPO on sunday night Diet: Heart healthy DVT prophylaxis: Subcutaneous heparin, ALPS CODE STATUS: DNR/DNI Problem List: 1. Pneumonia 2. Pleural effusion Pain Ratin Pain Location: L chest Pain Goal: Pain 4 or less Pain Plan: pain pathway Tomorrow's Labs & Rationales: cbc, bep
[2017-11-24 06:28] VITALS: BP 158/82
[2017-11-24 08:48] LABS: ABSOLUTE BASOPHIL COUNT 0 /CUMM (0.0-0.2); ABSOLUTE EOSINOPHIL COUNT 0 /CUMM (0.0-0.7); ABSOLUTE GRANULOCYTE CT 28.3 /CUMM (1.4-6.5); ABSOLUTE LYMPH COUNT 0.5 /CUMM (1.2-3.4); ABSOLUTE MONOCYTE COUNT 0.5 /CUMM (0.10-0.60); BASOPHIL % 0 % (0.0-2.0); EOSINOPHIL % 0 % (0-5); GRANULOCYTE % 96.2 % (42.2-75.2); HEMATOCRIT 38.6 % (42-52); MEAN CORPUSCULAR HGB 29.2 PG (27.0-31.0); MEAN CORPUSCULAR HGB CONC 33.7 G/DL (33.0-37.0); MEAN CORPUSCULAR VOLUME 86.7 FL (80.0-94.0); MEAN PLATELET VOLUME 9.3 FL (7.4-10.4); PLATELET COUNT 288 /CUMM (130-400); RBC DISTRIBUTION WIDTH 14.2 % (11.5-14.5); RED BLOOD CELL CT 4.45 /CUMM (4.70-6.10); WHITE BLOOD CELL COUNT 29.4 /CUMM (4.8-10.8)
--- NOTE | 2017-11-24 10:20 | PN- Att Addend ---
Attending Addendum Attending Brief Note Patient seen and examined. Lying in bed. Not in any acute distress. Denies shortness of breath. Admits to productive cough. Complains of reproducible left-sided chest discomfort. Vital Signs Date Time Temp Pulse Resp B/P B/P Pulse O2 O2 Flow FiO2 Mean Ox Delivery Rate 11/24 0846 98.0 90 20 158/82 11/24 0800 94 Nasal 2.0L Cannula 11/24 0628 98.0 90 20 158/82 96 11/24 0000 95 Nasal 2.0L Cannula 11/23 2351 98.1 96 20 160/82 95 11/23 2317 98.9 92 24 132/65 94 Nasal 2.0L Cannula 11/23 2123 99.3 109 26 151/76 11/24 2007 94 11/23 1959 98.7 104 26 145/100 94 Room Air General appearance: Well-developed, not in respiratory distress. Heart: S1-S2 regular Lungs: Diffuse crackles bilaterally. Reproducible pain left lung base. Abdomen: Soft, nontender with normal bowel sounds. Extremities: No pedal edema. Skin: Intact. Laboratory Tests 11/24/17 0655: Anion Gap 17 H, Estimated GFR > 60, BUN/Creatinine Ratio 22.2, CBC w Diff MAN DIFF ORDERED, WBC Pending, RBC Pending, Hgb Pending, Hct Pending, MCV Pending, MCH Pending, MCHC Pending, RDW Pending, Plt Count Pending, MPV Pending, Gran % Pending, Lymphocytes % Pending, Monocytes % Pending, Eosinophils % Pending, Basophils % Pending, Absolute Granulocytes Pending, Segmented Neutrophils Pending, Absolute Lymphocytes Pending, Absolute Monocytes Pending, Absolute Eosinophils Pending, Absolute Basophils Pending 11/24/17 0208: Troponin I < 0.01 11/23/17 2030: pH 7.42, pCO2 26 L, pO2 66 L, HCO3 17 L, ABG O2 Sat (Measured) 93.0 L, P-50 (Temp Corrected) N, Carboxyhemoglobin 0.3 L, O2 Concentration % RA/, Temperature 98.7, Phlebotomy Draw Site RIGHT BRACHIAL 11/23/172019: Anion Gap 14, Estimated GFR > 60, BUN/Creatinine Ratio 20.0, Glucose 211 H, Hemoglobin A1c Pending, Lactic Acid 1.9, Calcium 9.5, Total Bilirubin 1.3, AST 20, ALT 31, Alkaline Phosphatase 113, Troponin I < 0.01, Apm-K-Csbjivjvsdz Pept 309 H, Total Protein 7.2, Albumin 4.1, Globulin 3.1, Albumin/Globulin Ratio 1.3 , PT 12.0, INR 1.14, APTT 29, D-Dimer High Sensitivty 399 H, CBC w Diff MAN DIFF ORDERED, RBC 4.99, MCV 85.4, MCH 28.7, MCHC 33.6, RDW 14.1, MPV 8.0, Gran % 76.9 H, Lymphocytes % 19.2 L, Monocytes % 3.0, Eosinophils % 0.7, Basophils % 0.2, Absolute Granulocytes 19.4 H, Segmented Neutrophils 67, Band Neutrophils 8 H, Absolute Lymphocytes 4.8 H, Lymphocytes 21, Monocytes 2, Absolute Monocytes 0.8 H, Eosinophils 1, Absolute Eosinophils 0.2, Basophils 1, Absolute Basophils 0, Platelet Estimate ADEQUATE, Normocytic RBCs VERIFIED, Normochromic RBCs VERIFIED Microbiology 11/24 0900 LOWER RESP: Respiratory Culture - ORD 11/24 0900 LOWER RESP: Gram Stain - ORD 11/24 05 URINE ROUT: Legionella Antigen - COMP 11/25 515 URINE ROUT: Streptococcus pneumoniae Antigen (M - COMP 11/23 2133 NASOPHARYN: Influenza Virus A & B Rapid Smear - COMP 11/23 2099 BLOOD: Blood Culture - RECD 11/24 2019 BLOOD: Blood Culture - RECD Problems: 1. Left lower lobe pneumonia. 2. Small to moderate-sized pleural effusion; likely parapneumonic. 3. COPD 4. Hypertension Plan: -Continue antibiotic therapy with ceftriaxone/azithromycin. -Follow-up CBC this morning to ensure that white cell count is trending downwards. -Obtain pulmonary consultation on account of his small to moderate-sized pleural effusion. -Patient will require repeat pulmonary imaging to determine the progress of the left-sided pleural effusion. If not improving despite treatment of pneumonia. He may require therapeutic thoracocentesis to rule out underlying malignancy.
--- NOTE | 2017-11-24 11:48 | Cons- Pulmonary ---
General Information and HPI Consulting Request Date of Consult: 11/24/17 Requested By: Dr. Mac Reason for Consult: pleural effusion Source of Information: patient Exam Limitations: no limitations History of Present Illness: 87 year old man. Consultation for a left sided effusion in a pneumonia setting. Hx of waldenstroms macroglobulinemia (lymphoplasmacytic lymphoma). 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 Hx of dementia and ht. Presented with chest discomfort and found on CT to have a small to moderate left sided pleural effusion with airspace disease. No PE. WBC worsened from 25.2 to 29.4. Has been on ceftriaxone/zithromax. Feels somewhat better than admission. No sick contacts, no travel hx. Chronic cough without obvious prodromal symptoms. Afebrile, 94% o2 saturation on 2LNC. Allergies/Medications Allergies: Coded Allergies: No Known Allergies (11/23/17) Home Med List: Aspirin (Ecotrin*) 81 MG TABLET.DR 1 TAB PO DAILY HEART/BLOOD (Reported) Cholecalciferol (Vitamin D3) (Vitamin D) (Unknown Strength) CAPSULE (Unknown Dose) PO DAILY SUPPLEMENT (Reported) Lisinopril 5 MG TABLET 1 TAB PO DAILY BP (Reported) Sertraline HCl 25 MG TABLET 1 TAB PO DAILY MENTAL HEALTH (Reported) Tiotropium [place] (Spiriva) 18 MCG CAP.W.DEV 1 CAP INH DAILY COPD (Reported) Current Medications: Current Medications Sig/Eduin Start time Last Medication Dose Route Stop Time Status Admin Acetaminophen 1,000 MG Q6P PRN 11/23 2330 AC N/A 1 UNIT IV Acetaminophen 650 MG Q6P PRN 11/23 2315 AC 11/24 PO 0953 Albuterol Sulfate 3 ML ONCE ONE 11/23 2014 DC 11/23 INH 11/23 Albuterol Sulfate 3 ML ONCE ONE 11/23 2014 DC 11/23 INH 11/23 Albuterol Sulfate 3 ML ONCE ONE 11/24 1999 DC 11/23 INH 11/23 Aspirin Buffered 81 MG DAILY 11/24 1000 AC 11/24 PO 0846 Azithromycin 500 MG Q24H 11/23 2314 AC Sodium Chloride 250 ML IV Azithromycin 500 MG ONCE ONE 11/23 2115 DC 11/23 Dextrose/Water 250 ML IV 11/23 2214 2229 Ceftriaxone Sodium 1,000 MG DAILY 11/24 1000 AC 11/24 IV 0846 Ceftriaxone Sodium 0 .STK-MED ONE 11/23 2147 DC .ROUTE Ceftriaxone Sodium 1,000 MG ONCE ONE 11/23 2114 DC 11/23 IV 11/23 211 2200 Cholecalciferol 1,000 IU DAILY 11/24 1000 AC 11/24 PO 0846 Heparin Sodium 5,000 UNIT Q8 11/23 2314 AC 11/24 (Porcine) SC 0517 Ipratropium [place] 2.5 ML ONCE ONE 11/24 1999 DC 11/23 INH 11/23 Lisinopril 5 MG DAILY 11/24 1000 AC 11/24 PO 0846 Magnesium Sulfate 1 GM ONCE ONE 11/23 2014 DC 11/23 Dextrose/Water 100 ML IV 11/24 13 2020 Methylprednisolone 60 MG DAILY 11/24 1000 CAN IV Methylprednisolone 125 MG ONCE ONE 11/23 2014 DC 11/23 IV 11/23 Methylprednisolone 0 .STK-MED ONE 11/24 2011 DC .ROUTE Morphine Sulfate 4 MG ONCE ONE 11/23 2044 DC 11/23 IV 11/23 2045 212 Morphine Sulfate 0 .STK-MED ONE 11/23 2041 DC .ROUTE Morphine Sulfate 2 MG ONCE ONE 11/23 2014 DC 11/23 IV 11/23 Morphine Sulfate 0 .STK-MED ONE 11/24 2011 DC .ROUTE Sertraline HCl 25 MG DAILY 11/24 1000 AC 11/24 PO 0846 Sodium Chloride 1,000 ML .Q20H 11/23 2315 DC IV Tiotropium [place] 1 PUF DAILY 11/24 1000 AC 11/24 INH 0845 Review of Systems Comments 18 point review of systems was performed and reviewed. Please see pertinent positives and pertinent negatives in the HPI. Otherwise ROS is negative. 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 Home Who Do You Live With? spouse Services at Home: daughter comes twice per day to assist with medications Primary Language: Nigerien Smoking Status: Former Smoker (50+ pack years) ETOH Use: denies use Illicit Drug Use: denies illicit drug use Living Will? yes Functional Ability Ambulation: cane IADLs Needs Assist: medication admin. Exam & Diagnostic Data Last 24 Hrs of Vital Signs/I&O Vital Signs Date Time Temp Pulse Resp B/P B/P Pulse O2 O2 Flow FiO2 Mean Ox Delivery Rate 11/24 0846 98.0 90 20 158/82 11/24 0800 94 Nasal 2.0L Cannula 11/24 0628 98.0 90 20 158/82 96 11/24 0000 95 Nasal 2.0L Cannula 11/23 2351 98.1 96 20 160/82 95 11/23 2317 98.9 92 24 132/65 94 Nasal 2.0L Cannula 11/23 2123 99.3 109 26 151/76 11/23 2008 94 11/23 1959 98.7 104 26 145/100 94 Room Air Intake & Output 11/24 1600 11/24 0800 11/24 0000 Intake Total 120 115 Output Total 300 Balance -180 115 Intake, IV 115 Intake, Oral 120 Output, Urine 300 Patient 209 lb 209 lb Weight Weight Reported by Patient Measurement Method Physical Exam Other Physical Findings: Generally - Awake, alert and comfortable without distress Head and neck - normocephalic, atraumatic, EOMI grossly intact Cardiovascular - S1, S2, no murmurs, rubs or gallops Lungs - diminished bs at left base, rare rhonchi Abdomen - Bowel sounds positive, soft, non-tender Extremities - without edema Last 48 Hrs of Labs/Luis F: Laboratory Tests 11/24/17 0655: Anion Gap 17 H, Estimated GFR > 60, BUN/Creatinine Ratio 22.2, CBC w Diff MAN DIFF ORDERED, RBC 4.45 L, MCV 86.7, MCH 29.2, MCHC 33.7, RDW 14.2, MPV 9.3, Gran % 96.2 H, Lymphocytes % 1.9 L, Monocytes % 1.9, Eosinophils % 0, Basophils % 0, Absolute Granulocytes 28.3 H, Segmented Neutrophils 78 H, Band Neutrophils 17 H, Absolute Lymphocytes 0.5 L, Lymphocytes 3 L, Monocytes 2, Absolute Monocytes 0.5, Absolute Eosinophils 0, Absolute Basophils 0, Platelet Estimate ADEQUATE, Normocytic RBCs VERIFIED, Normochromic RBCs VERIFIED 11/24/17 0208: Troponin I < 0.01 11/23/17 2030: pH 7.42, pCO2 26 L, pO2 66 L, HCO3 17 L, ABG O2 Sat (Measured) 93.0 L, P-50 (Temp Corrected) N, Carboxyhemoglobin 0.3 L, O2 Concentration % RA/, Temperature 98.7, Phlebotomy Draw Site RIGHT BRACHIAL 11/23/172019: Anion Gap 14, Estimated GFR > 60, BUN/Creatinine Ratio 20.0, Glucose 211 H, Hemoglobin A1c Pending, Lactic Acid 1.9, Calcium 9.5, Total Bilirubin 1.3, AST 20, ALT 31, Alkaline Phosphatase 113, Troponin I < 0.01, Uux-[id number] Pept 309 H, Total Protein 7.2, Albumin 4.1, Globulin 3.1, Albumin/Globulin Ratio 1.3 , PT 12.0, INR 1.14, APTT 29, D-Dimer High Sensitivty 399 H, CBC w Diff MAN DIFF ORDERED, RBC 4.99, MCV 85.4, MCH 28.7, MCHC 33.6, RDW 14.1, MPV 8.0, Gran % 76.9 H, Lymphocytes % 19.2 L, Monocytes % 3.0, Eosinophils % 0.7, Basophils % 0.2, Absolute Granulocytes 19.4 H, Segmented Neutrophils 67, Band Neutrophils 8 H, Absolute Lymphocytes 4.8 H, Lymphocytes 21, Monocytes 2, Absolute Monocytes 0.8 H, Eosinophils 1, Absolute Eosinophils 0.2, Basophils 1, Absolute Basophils 0, Platelet Estimate ADEQUATE, Normocytic RBCs VERIFIED, Normochromic RBCs VERIFIED Microbiology 11/25 515 URINE ROUT: Legionella Antigen - COMP 11/25 515 URINE ROUT: Streptococcus pneumoniae Antigen (M - COMP 11/23 2133 NASOPHARYN: Influenza Virus A & B Rapid Smear - COMP Assessment/Plan Impression/Plan: Impression 87 year old man. Consultation for a left sided effusion in a pneumonia setting. Hx of waldenstroms macroglobulinemia (lymphoplasmacytic lymphoma). 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 Hx of dementia and ht. Presented with chest discomfort and found on CT to have a small to moderate left sided pleural effusion with airspace disease. No PE. WBC worsened from 25.2 to 29.4. Has been on ceftriaxone/zithromax. Feels somewhat better than admission. No sick contacts, no travel hx. Chronic cough without obvious prodromal symptoms. Afebrile, 94% o2 saturation on 2LNC. Plan -IR consultation for diagnostic and therapeutic thoracentesis - if septation/ complicated fluid a pigtail should be placed during procedure -ensure ph, ldh (also in serum), t.protein, t.cholesterol, microbiology, cytology, cell count are all sent -cont abx -discussed with family, if no improvement after drainage of fluid, ID consultation can be considered -trc/nebs -will require outpt pulmonary workup for COPD once clinically stable DVT prophylaxis at all times Consult Acknowledgment - Thank you for your consult request.
[2017-11-24 13:40] VITALS: BP 140/80
[2017-11-24 21:45] VITALS: BP 150/72
[2017-11-25 05:44] VITALS: BP 142/80
[2017-11-25 08:43] LABS: ABSOLUTE BASOPHIL COUNT 0 /CUMM (0.0-0.2); ABSOLUTE EOSINOPHIL COUNT 0 /CUMM (0.0-0.7); ABSOLUTE GRANULOCYTE CT 22.4 /CUMM (1.4-6.5); ABSOLUTE LYMPH COUNT 1.3 /CUMM (1.2-3.4); ABSOLUTE MONOCYTE COUNT 0.9 /CUMM (0.10-0.60); BASOPHIL % 0 % (0.0-2.0); EOSINOPHIL % 0.1 % (0-5); GRANULOCYTE % 91.1 % (42.2-75.2); HEMATOCRIT 38.5 % (42-52); MEAN CORPUSCULAR HGB CONC 33.4 G/DL (33.0-37.0); MEAN CORPUSCULAR VOLUME 86.9 FL (80.0-94.0); MEAN PLATELET VOLUME 9.2 FL (7.4-10.4); PLATELET COUNT 300 /CUMM (130-400); RBC DISTRIBUTION WIDTH 14.5 % (11.5-14.5); RED BLOOD CELL CT 4.43 /CUMM (4.70-6.10); WHITE BLOOD CELL COUNT 24.6 /CUMM (4.8-10.8)
[2017-11-25 09:13] LABS: PT 12.7 SEC (9.4-12.5); PTT 33 SEC (25-37)
--- NOTE | 2017-11-25 10:39 | PN- Housestaff ---
Subjective Follow-up For: Plerual effusion with CAP and malignancy Subjective: BC gorwing GPC in pairs in 1/2 tubes. Patient feels well this morning. No fevers , CP, or SOB. Review of Systems Constitutional: Reports: no symptoms. EENTM: Reports: no symptoms. Cardiovascular: Reports: no symptoms. Respiratory: Reports: see HPI. Gastrointestinal: Reports: no symptoms. Genitourinary: Reports: no symptoms. Musculoskeletal: Reports: no symptoms. Skin: Reports: no symptoms. Neurological/Psychological: Reports: no symptoms. Hematologic/Endocrine: Reports: no symptoms. Immunologic/Allergic: Reports: no symptoms. Objective Last 24 Hrs of Vital Signs/I&O Vital Signs Date Time Temp Pulse Resp B/P B/P Pulse O2 O2 Flow FiO2 Mean Ox Delivery Rate 11/25 0937 80 142/80 11/25 0544 99.0 79 20 142/80 95 11/25 0000 Nasal 3.0L Cannula 11/24 2145 99.0 91 20 150/72 94 Nasal 2.0L Cannula 11/25 2007 90 Nasal 2.0L Cannula 11/24 1600 Nasal 2.0L Cannula 11/24 1340 99.1 89 18 140/80 93 Nasal 2.0L Cannula 11/24 1322 Nasal 2.0L Cannula Intake & Output 11/25 1600 11/25 0800 11/25 0000 Intake Total 490 480 Output Total 150 200 Balance 340 280 Intake, IV 250 Intake, Oral 240 480 Number 0 Bowel Movements Output, Urine 150 200 Patient 100.839 kg Weight Weight Bed scale Measurement Method Physical Exam General Appearance: Alert, Oriented X3, Cooperative, Mild Distress Cardiovascular: Regular Rate, Normal S1, Normal S2 Lungs: moderate wheezing and scattered rhonci Abdomen: Normal Bowel Sounds, Soft, No Tenderness Extremities: No Edema Current Medications: Current Medications Sig/Eduin Start time Last Medication Dose Route Stop Time Status Admin Acetaminophen 650 MG .STK-MED ONE 11/24 1853 DC PO 11/24 1854 Acetaminophen 1,000 MG Q6P PRN 11/23 2330 AC N/A 1 UNIT IV Acetaminophen 650 MG Q6P PRN 11/23 2315 AC 11/24 PO 1855 Albuterol Sulfate 3 ML BID 11/24 2200 AC 11/24 INH 2007 Aspirin Buffered 81 MG DAILY 11/24 1000 AC 11/25 PO 0937 Azithromycin 500 MG Q24H 11/23 2315 AC 11/24 Sodium Chloride 250 ML IV 2322 Ceftriaxone Sodium 1,000 MG DAILY 11/24 1000 AC 11/25 IV 0936 Cholecalciferol 1,000 IU DAILY 11/24 1000 AC 11/25 PO 0937 Docusate Sodium 100 MG DAILY NEEDED PRN 11/24 2000 AC 11/25 PO 0936 Heparin Sodium 5,000 UNIT Q8 11/23 2314 AC 11/25 (Porcine) SC 0534 Ketorolac 15 MG ONCE ONE 11/25 0215 DC 11/25 Tromethamine IV 11/25 0216 0210 Lisinopril 5 MG DAILY 11/24 1000 AC 11/25 PO 0937 Polyethylene Glycol 17 GM DAILY 11/24 1957 AC 11/25 PO 0936 Senna 187 MG AT BEDTIME 11/24 2200 AC 11/24 PO 2143 Sertraline HCl 25 MG DAILY 11/24 1000 AC 11/25 PO 0937 Tiotropium [place] 1 PUF DAILY 11/24 1000 AC 11/25 INH 0943 Last 24 Hrs of Lab/Luis F Results Last 24 Hrs of Labs/Mics: Laboratory Tests 11/25/17 1000: Fluid WBC Cancelled, Fld Total RBCs Counted Cancelled 11/25/17 1000: Fluid Albumin Cancelled 11/25/17 0700: Fluid Total Protein Cancelled 11/25/17 0656: Anion Gap 13, Estimated GFR > 60, BUN/Creatinine Ratio 37.8 H, PT 12.7 H, INR 1.16, APTT 33, CBC w Diff MAN DIFF ORDERED, RBC 4.43 L, MCV 86.9, MCH 29.0, MCHC 33.4, RDW 14.5, MPV 9.2, Gran % 91.1 H, Lymphocytes % 5.3 L, Monocytes % 3.5, Eosinophils % 0.1, Basophils % 0, Absolute Granulocytes 22.4 H, Segmented Neutrophils 88 H, Band Neutrophils 8 H, Absolute Lymphocytes 1.3, Lymphocytes 1 L, Monocytes 3, Absolute Monocytes 0.9 H, Absolute Eosinophils 0, Absolute Basophils 0, Platelet Estimate ADEQUATE, Normocytic RBCs VERIFIED, Normochromic RBCs VERIFIED Microbiology 11/25 699 BODY FLUID: Body Fluid Culture - CAN Cancelled: Cancelled via OE: Per MD Decision 11/25 699 BODY FLUID: Gram Stain - CAN Cancelled: Cancelled via OE: Per MD Decision Assessment/Plan Assessment: Patient is an 87-year-old male with a PMH significant for HTN, COPD, Waldenstrom 's macroglobulinemia, vascular dementia who was brought in by ambulance for left -sided chest pain and dyspnea. Patient was in his usual state of health until this evening when he began to have left-sided chest pain shortness of breath. SOB appears to be related to the chest pain as his pain is under control he is breathing normally. CXR showing bibasilar atelectasis left lower lobe opacity with pleural effusion. PE ruled out with CTA Chest Urine legionalle and strep pneumoniae ag negative Problem list #CAP #Chronic problems including HTN, COPD, Waldenstrom macroglobulinemia on Rituxan, dementia Plan - continue IV azithromycin and ceftriaxone. Consider discontinuing azithromycin -Growing gram-positive cocci in pairs and 1/2 blood culture tubes -wean off of O2 as tolerated - no significant wheezing and saturating well on 2 L O2 NC, no need to initiate steroids -Follow-up blood and sputum cultures -TRC/nebs -patient will need diagnostic paracentesis of L pleural effusion in the setting of malignancy. An IR consult will be placed on Sunday morning and the pt will be NPO on sunday night. I talk to IR today and they say that the effusion is too small to tap currently but to follow up to see if it grows in size. -Repeat chest x-ray tomorrow Diet: Heart healthy DVT prophylaxis: Subcutaneous heparin, ALPS CODE STATUS: DNR/DNI Problem List: 1. Pleural effusion 2. Pneumonia Pain Ratin Pain Location: no Pain Goal: Remain pain free Pain Plan: see a/p Tomorrow's Labs & Rationales: cbc, bep
--- NOTE | 2017-11-25 10:41 | PN- Att Addend ---
Attending Addendum Attending Brief Note Patient seen and examined. Resting comfortably not in any acute distress. No issues overnight. No new complaints this morning. Complains of productive cough. Complains of left-sided chest discomfort. Pain is reproducible. He has remained afebrile and hemodynamically stable. Vital Signs Date Time Temp Pulse Resp B/P B/P Pulse O2 O2 Flow FiO2 Mean Ox Delivery Rate 11/25 0937 80 142/80 11/25 0544 99.0 79 20 142/80 95 11/25 0000 Nasal 3.0L Cannula 11/24 2145 99.0 91 20 150/72 94 Nasal 2.0L Cannula 11/25 2007 90 Nasal 2.0L Cannula 11/24 1600 Nasal 2.0L Cannula 11/24 1340 99.1 89 18 140/80 93 Nasal 2.0L Cannula 11/24 1322 Nasal 2.0L Cannula General appearance: Not in acute distress. Heart: S1-S2 regular. Lungs: Diffuse rhonchi bilaterally. Abdomen: Soft and nontender with normal bowel sounds. Extremities: No pedal edema. Laboratory Tests 11/25/17 1000: Fluid WBC Cancelled, Fld Total RBCs Counted Cancelled 11/25/17 1000: Fluid Albumin Cancelled 11/25/17 0700: Fluid Total Protein Cancelled 11/25/17 0656: Anion Gap 13, Estimated GFR > 60, BUN/Creatinine Ratio 37.8 H, PT 12.7 H, INR 1.16, APTT 33, CBC w Diff MAN DIFF ORDERED, RBC 4.43 L, MCV 86.9, MCH 29.0, MCHC 33.4, RDW 14.5, MPV 9.2, Gran % 91.1 H, Lymphocytes % 5.3 L, Monocytes % 3.5, Eosinophils % 0.1, Basophils % 0, Absolute Granulocytes 22.4 H, Segmented Neutrophils 88 H, Band Neutrophils 8 H, Absolute Lymphocytes 1.3, Lymphocytes 1 L, Monocytes 3, Absolute Monocytes 0.9 H, Absolute Eosinophils 0, Absolute Basophils 0, Platelet Estimate ADEQUATE, Normocytic RBCs VERIFIED, Normochromic RBCs VERIFIED Microbiology 11/25 699 BODY FLUID: Body Fluid Culture - CAN Cancelled: Cancelled via OE: Per MD Decision 11/25 699 BODY FLUID: Gram Stain - CAN Cancelled: Cancelled via OE: Per MD Decision Problems: 1. Left lower lobe pneumonia. 2. Small to moderate-sized pleural effusion; likely parapneumonic. 3. COPD 4. Hypertension Recommendations: -Pulmonology consult facility were appreciated. Recommendations are to undergo diagnostic thoracocentesis to evaluate for parapneumonic effusion or possible malignant process. -Imaging was reevaluated by the radiology service and the impression now is that the left pleural effusion is actually small in quantity and not appropriate to be drained at this time. -Obtain chest x-ray this morning to evaluate size of pleural effusion. -Patient is currently clinically stable. He is afebrile. White cell count is trending down although still very high on current antibiotic therapy. We will reevaluate need for thoracocentesis during the week. -No need to escalate antibiotic therapy for now given his clinical improvement. -Continue bronchodilator therapy.
--- NOTE | 2017-11-25 14:38 | PN- Pulmonary ---
Subjective HPI/Critical Care Issues: Patient seen and examined this morning. His white count is a little S however still elevated at 24.9. He feels better than yesterday and per interventional radiologist there is not enough fluid for a safe thoracentesis at this time. Objective Current Medications: Current Medications Sig/Eduin Start time Last Medication Dose Route Stop Time Status Admin Acetaminophen 650 MG .STK-MED ONE 11/24 1853 DC PO 11/24 1854 Acetaminophen 1,000 MG Q6P PRN 11/23 2330 AC N/A 1 UNIT IV Acetaminophen 650 MG Q6P PRN 11/23 2315 AC 11/24 PO 1855 Albuterol Sulfate 3 ML BID 11/24 2200 AC 11/25 INH 1120 Aspirin Buffered 81 MG DAILY 11/24 1000 AC 11/25 PO 0937 Azithromycin 500 MG Q24H 11/25 2300 AC Dextrose/Water 250 ML IV Azithromycin 500 MG Q24H 11/23 2315 DC 11/24 Sodium Chloride 250 ML IV 2322 Ceftriaxone Sodium 1,000 MG DAILY 11/24 1000 AC 11/25 IV 0936 Cholecalciferol 1,000 IU DAILY 11/24 1000 AC 11/25 PO 0937 Docusate Sodium 100 MG DAILY NEEDED PRN 11/24 2000 AC 11/25 PO 0936 Heparin Sodium 5,000 UNIT Q8 11/23 2314 AC 11/25 (Porcine) SC 1414 Ketorolac 15 MG ONCE ONE 11/25 0215 DC 11/25 Tromethamine IV 11/25 0216 0210 Lisinopril 5 MG DAILY 11/24 1000 AC 11/25 PO 0937 Polyethylene Glycol 17 GM DAILY 11/24 1957 AC 11/25 PO 0936 Senna 187 MG AT BEDTIME 11/24 2200 AC 11/24 PO 2143 Sertraline HCl 25 MG DAILY 11/24 1000 AC 11/25 PO 0937 Tiotropium [place] 1 PUF DAILY 11/24 1000 AC 11/25 INH 0943 Vital Signs & I&O Last 24 Hrs of Vitals and I&O: Vital Signs Date Time Temp Pulse Resp B/P B/P Pulse O2 O2 Flow FiO2 Mean Ox Delivery Rate 11/25 1121 95 Nasal 3.0L Cannula 11/25 0937 80 142/80 11/25 0800 93 Nasal 3.0L Cannula 11/25 0544 99.0 79 20 142/80 95 11/25 0000 Nasal 3.0L Cannula 11/24 2145 99.0 91 20 150/72 94 Nasal 2.0L Cannula 11/24 Nasal 2.0L Cannula 11/24 1600 Nasal 2.0L Cannula Intake & Output 11/25 1600 11/25 0800 11/25 0000 Intake Total 490 480 Output Total 150 200 Balance 340 280 Intake, IV 250 Intake, Oral 240 480 Number 0 Bowel Movements Output, Urine 150 200 Patient 222 lb Weight Weight Bed scale Measurement Method Exam Other Physical Findings: Generally - Awake, alert and comfortable without distress Head and neck - normocephalic, atraumatic, EOMI grossly intact Cardiovascular - S1, S2, no murmurs, rubs or gallops Lungs - diminished bs at left base, rare rhonchi Abdomen - Bowel sounds positive, soft, non-tender Extremities - without edema Results Last 24 Hrs of Lab Results: Laboratory Tests 11/25/17 1000: Fluid WBC Cancelled, Fld Total RBCs Counted Cancelled 11/25/17 1000: Fluid Albumin Cancelled 11/25/17 0700: Fluid Total Protein Cancelled 11/25/17 0656: Anion Gap 13, Estimated GFR > 60, BUN/Creatinine Ratio 37.8 H, PT 12.7 H, INR 1.16, APTT 33, CBC w Diff MAN DIFF ORDERED, RBC 4.43 L, MCV 86.9, MCH 29.0, MCHC 33.4, RDW 14.5, MPV 9.2, Gran % 91.1 H, Lymphocytes % 5.3 L, Monocytes % 3.5, Eosinophils % 0.1, Basophils % 0, Absolute Granulocytes 22.4 H, Segmented Neutrophils 88 H, Band Neutrophils 8 H, Absolute Lymphocytes 1.3, Lymphocytes 1 L, Monocytes 3, Absolute Monocytes 0.9 H, Absolute Eosinophils 0, Absolute Basophils 0, Platelet Estimate ADEQUATE, Normocytic RBCs VERIFIED, Normochromic RBCs VERIFIED Impression/Plan Impression/Plan Impression/Plan: Impression 87 year old man. * CAP with an associated small pleural effusion and atelectasis - not safe for thoracentesis at the present time * Hx of waldenstroms macroglobulinemia (lymphoplasmacytic lymphoma) * Hx of COPD on spiriva, no pfts or pulmonary outpatient care. Hx of dementia and ht. Presented with chest discomfort and found on CT to have a small left sided pleural effusion with airspace disease. No PE. Plan -chest ultrasound tomrrow to assess pleural fluid and if any safe pocket for thoracentesis -consider ID input given Rituxan use and immunocompromised state --cont abx -trc/nebs -will require outpt pulmonary workup for COPD once clinically stable DVT prophylaxis at all times
[2017-11-25 15:08] VITALS: BP 150/98
--- NOTE | 2017-11-25 16:33 | RADIOLOGY REPORT ---
EXAMINATION: XR CHEST CLINICAL INFORMATION: Shortness of breath. Pneumonia. Pleural effusion. COMPARISON: Chest radiography 11/23/2017. TECHNIQUE: 2 views of the chest were obtained. FINDINGS: Blunting of the left costophrenic angle with adjacent left basilar opacification, mildly worsened from prior exam. No new right lung consolidation. Peribronchial thickening/bronchovascular prominence at the right lung base is stable to mildly improved compared to prior exam. No pneumothorax. Mediastinal contours are unchanged. No acute osseous abnormalities. IMPRESSION: Moderate left pleural effusion and adjacent basilar opacification, mildly worsened since radiography 11/23/2017.
[2017-11-25 22:46] VITALS: BP 107/75
[2017-11-26 06:28] VITALS: BP 154/84
--- NOTE | 2017-11-26 07:11 | PN- Housestaff ---
Silva SANTOS,German 11/26/17 0711: Subjective Follow-up For: CAP L plueral effusion Subjective: Patient was seen and examined at bedside. He was resting comfortably. He had no acute events overnight. He continues to complain of mild left-sided chest pain and nonproductive cough but has no new complaints. He denies any fever, chills, shortness of breath, lightheadedness. Review of Systems Constitutional: Denies: chills, fever. EENTM: Reports: no symptoms. Cardiovascular: Reports: see HPI, chest pain. Denies: palpitations. Respiratory: Reports: cough. Denies: short of breath. Gastrointestinal: Reports: no symptoms. Genitourinary: Reports: no symptoms. Musculoskeletal: Reports: no symptoms. Objective Last 24 Hrs of Vital Signs/I&O Vital Signs Date Time Temp Pulse Resp B/P B/P Pulse O2 O2 Flow FiO2 Mean Ox Delivery Rate 11/26 0628 98.3 92 20 154/84 95 11/26 0000 Nasal 3.0L Cannula 11/25 2246 98.7 63 24 107/75 96 Nasal 3.0L Cannula 11/25 2033 94 Nasal 3.0L Cannula 11/25 1600 94 Nasal 3.0L Cannula / 1508 98.1 107 18 150/98 96 Nasal 3.0L Cannula 11/25 1121 95 Nasal 3.0L Cannula / 0937 80 142/80 / 0800 93 Nasal 3.0L Cannula Intake & Output 11/26 0800 03/ 0000 / 1600 Intake Total 240 970 Output Total 550 Balance -310 970 Intake, IV 250 Intake, Oral 240 720 Output, Urine 550 Physical Exam General Appearance: Alert, Cooperative, No Acute Distress, oriented to person and time but not place Skin Temp/Moisture Exam: Warm/Dry Sepsis Skin Exam (color): Normal for Ethnicity Cardiovascular: Regular Rate, Normal S1, Normal S2, mild TTP of the L sided chest, decreased from 11/24/17 Lungs: Rhonchi in the L lower lung field Abdomen: Normal Bowel Sounds, Soft, No Tenderness Neurological: Normal Speech, Normal Tone, Sensation Intact Extremities: No Clubbing, No Cyanosis, No Edema, Normal Pulses Current Medications: Current Medications Sig/Eduin Start time Last Medication Dose Route Stop Time Status Admin Acetaminophen 650 MG .K-MED ONE 11/25 2211 DC PO 11/25 221 Acetaminophen 1,000 MG Q6P PRN 11/23 2330 AC N/A 1 UNIT IV Acetaminophen 650 MG Q6P PRN 11/23 2315 AC 11/24 PO 1855 Albuterol Sulfate 3 ML BID 11/24 2200 AC 11/25 INH 2029 Aspirin Buffered 81 MG DAILY 11/24 1000 AC 11/25 PO 0937 Azithromycin 500 MG Q24H 11/25 2300 AC 11/25 Dextrose/Water 250 ML IV 2213 Azithromycin 500 MG Q24H 11/23 2315 DC 11/24 Sodium Chloride 250 ML IV 2322 Ceftriaxone Sodium 1,000 MG DAILY 11/24 1000 AC 11/25 IV 0936 Cholecalciferol 1,000 IU DAILY 11/24 1000 AC 11/25 PO 0937 Docusate Sodium 100 MG .STK-MED ONE 11/25 0932 DC PO 11/25 0933 Docusate Sodium 100 MG DAILY NEEDED PRN 11/24 2000 AC 11/25 PO 0936 Heparin Sodium 5,000 UNIT Q8 11/23 2314 AC 11/26 (Porcine) SC 0518 Lisinopril 5 MG DAILY 11/24 1000 AC 11/25 PO 0937 Polyethylene Glycol 17 GM DAILY 11/24 1957 AC 11/25 PO 0936 Senna 187 MG AT BEDTIME 11/24 220 AC 11/25 PO 2213 Sertraline HCl 25 MG DAILY 11/24 1000 AC 11/25 PO 0937 Tiotropium [place] 1 PUF DAILY 11/24 1000 AC 11/25 INH 0943 Last 24 Hrs of Lab/Luis F Results Last 24 Hrs of Labs/Mics: Laboratory Tests 11/26/17 0708: Sodium Pending, Potassium Pending, Chloride Pending, Carbon Dioxide Pending, Anion Gap Pending, BUN Pending, Creatinine Pending, BUN/Creatinine Ratio Pending , CBC w Diff Pending, WBC Pending, RBC Pending, Hgb Pending, Hct Pending, MCV Pending, MCH Pending, MCHC Pending, RDW Pending, Plt Count Pending, MPV Pending 11/25/17 1000: Fluid WBC Cancelled, Fld Total RBCs Counted Cancelled 11/25/17 1000: Fluid Albumin Cancelled Assessment/Plan Assessment: Patient is an 87-year-old male with a PMH significant for HTN, COPD, Waldenstrom 's macroglobulinemia, vascular dementia who was brought in by ambulance for left -sided chest pain and dyspnea. Patient was in his usual state of health until this evening when he began to have left-sided chest pain shortness of breath. SOB appears to be related to the chest pain as his pain is under control he is breathing normally. CXR showing bibasilar atelectasis left lower lobe opacity with pleural effusion. PE ruled out with CTA Chest Urine legionalle and strep pneumoniae ag negative Problem list #CAP with left pleural effusion #leukocytosis #Chronic problems including HTN, COPD, Waldenstrom macroglobulinemia on Rituxan, dementia Plan - continue IV azithromycin and ceftriaxone. -GPC's growing in one of 2 blood cultures - wean off of O2 as tolerated - no significant wheezing and saturating well on 3 L O2 NC, no need to initiate steroids, will decrease to 2 L O2 nasal cannula -Follow-up final blood culture and attempt to obtain sputum culture -TRC/nebs -Follow-up repeat CXR today and assess ability of IR to perform diagnostic thoracentesis Diet: NPO for possible troracentesis today DVT prophylaxis: Subcutaneous heparin, ALPS CODE STATUS: DNR/DNI Problem List: 1. Pleural effusion 2. Pneumonia Pain Ratin Pain Location: L sided chest Pain Goal: Pain 4 or less Pain Plan: pain pathway Tomorrow's Labs & Rationales: cbc, bep Sarahy Leung MD 11/26/17 1034: Attending MD Review Statement Attending Statement Attending MD Statement: examined this patient, discuss w/resident/PA/GREASE MACHINE WORKER, agreed w/resident/PA/GREASE MACHINE WORKER, reviewed EMR data (avail) Attending Assessment/Plan: 87M PMH Waldenstrom's macroglobulinemia, COPD admitted for left sided pneumonia with parapneumonic effusion, being treated with Ceftriaxone and Azithromycin, steadily improving. Has a productive cough today, feels about the same as yesterday, remains afebrile. 1. LLL pneumonia 2. Parapneumonic effusion 3. COPD exacerbation 4. Waldenstrom's macroglobulinemia Plan - Continue on general medicine - IR consult for thoracentesis - Follow cultures - Continue antibiotics - Continue Solumedrol - Pulmonary consult - Continue home medications - DVT PPx
[2017-11-26 08:14] LABS: ABSOLUTE BASOPHIL COUNT 0 /CUMM (0.0-0.2); ABSOLUTE EOSINOPHIL COUNT 0 /CUMM (0.0-0.7); ABSOLUTE GRANULOCYTE CT 17.6 /CUMM (1.4-6.5); ABSOLUTE LYMPH COUNT 0.8 /CUMM (1.2-3.4); ABSOLUTE MONOCYTE COUNT 0.7 /CUMM (0.10-0.60); BASOPHIL % 0.2 % (0.0-2.0); EOSINOPHIL % 0.1 % (0-5); GRANULOCYTE % 91.8 % (42.2-75.2); HEMATOCRIT 38.3 % (42-52); MEAN CORPUSCULAR HGB 29.3 PG (27.0-31.0); MEAN CORPUSCULAR HGB CONC 33.9 G/DL (33.0-37.0); MEAN CORPUSCULAR VOLUME 86.2 FL (80.0-94.0); MEAN PLATELET VOLUME 8.8 FL (7.4-10.4); PLATELET COUNT 341 /CUMM (130-400); RBC DISTRIBUTION WIDTH 14.1 % (11.5-14.5); RED BLOOD CELL CT 4.45 /CUMM (4.70-6.10); WHITE BLOOD CELL COUNT 19.2 /CUMM (4.8-10.8)
[2017-11-26 10:41] VITALS: BP 150/78
--- NOTE | 2017-11-26 12:00 | PN- Pulmonary ---
Subjective HPI/Critical Care Issues: pt seen and examined feeling better wbc reduced Objective Current Medications: Current Medications Sig/Eduin Start time Last Medication Dose Route Stop Time Status Admin Acetaminophen 650 MG .STK-MED ONE 11/25 221 DC PO 11/25 221 Acetaminophen 1,000 MG Q6P PRN 11/23 2330 AC N/A 1 UNIT IV Acetaminophen 650 MG Q6P PRN 11/23 2315 AC 11/24 PO 1855 Albuterol Sulfate 3 ML BID 11/24 2200 AC 11/26 INH 0941 Aspirin Buffered 81 MG DAILY 11/24 1000 AC 11/26 PO 0810 Azithromycin 500 MG Q24H 11/25 2300 AC 11/25 Dextrose/Water 250 ML IV 2213 Bisacodyl 10 MG Q12P PRN 11/26 0745 AC 11/26 CO 0822 Ceftriaxone Sodium 1,000 MG DAILY 11/24 1000 AC 11/26 IV 0813 Cholecalciferol 1,000 IU DAILY 11/24 1000 AC 11/26 PO 0811 Docusate Sodium 100 MG DAILY NEEDED PRN 11/24 2000 AC 11/25 PO 0936 Heparin Sodium 5,000 UNIT Q8 11/23 2314 AC 11/26 (Porcine) SC 0518 Lisinopril 5 MG DAILY 11/24 1000 AC 11/26 PO 0811 Polyethylene Glycol 17 GM DAILY 11/24 1957 AC 11/25 PO 0936 Senna 187 MG AT BEDTIME 11/24 2200 AC 11/25 PO 2213 Sertraline HCl 25 MG DAILY 11/24 1000 AC 11/26 PO 0810 Tiotropium [place] 1 PUF DAILY 11/24 1000 AC 11/26 INH 0812 Vital Signs & I&O Last 24 Hrs of Vitals and I&O: Vital Signs Date Time Temp Pulse Resp B/P B/P Pulse O2 O2 Flow FiO2 Mean Ox Delivery Rate 11/26 1106 Nasal 2.0L Cannula 11/26 1041 99.1 84 22 150/78 93 Nasal 2.0L Cannula 11/26 0943 93 Nasal 2.0L Cannula 11/26 0828 22 93 Nasal 2.0L Cannula 11/26 0811 92 154/84 11/26 0800 95 Nasal 3.0L Cannula 11/26 0628 98.3 92 20 154/84 95 11/26 0000 Nasal 3.0L Cannula 11/25 2246 98.7 63 24 107/75 96 Nasal 3.0L Cannula 11/25 2032 94 Nasal 3.0L Cannula 11/25 1600 94 Nasal 3.0L Cannula 11/25 1508 98.1 107 18 150/98 96 Nasal 3.0L Cannula Intake & Output 11/26 1600 11/26 0800 11/26 0000 Intake Total 240 970 Output Total 550 Balance -310 970 Intake, IV 250 Intake, Oral 240 720 Number 1 Bowel Movements Output, Urine 550 Patient 216 lb Weight Exam Other Physical Findings: Generally - Awake, alert and comfortable without distress Head and neck - normocephalic, atraumatic, EOMI grossly intact Cardiovascular - S1, S2, no murmurs, rubs or gallops Lungs - diminished bs at left base, rare rhonchi Abdomen - Bowel sounds positive, soft, non-tender Extremities - without edema Results Last 24 Hrs of Lab Results: Laboratory Tests 11/26/17 0708: Anion Gap 11, Estimated GFR > 60, BUN/Creatinine Ratio 30.0 H, CBC w Diff MAN DIFF ORDERED, RBC 4.45 L, MCV 86.2, MCH 29.3, MCHC 33.9, RDW 14.1, MPV 8.8, Gran % 91.8 H, Lymphocytes % 4.3 L, Monocytes % 3.6, Eosinophils % 0.1, Basophils % 0.2, Absolute Granulocytes 17.6 H, Segmented Neutrophils 87 H, Band Neutrophils 10 H, Absolute Lymphocytes 0.8 L, Lymphocytes 2 L, Monocytes 1 L, Absolute Monocytes 0.7 H, Absolute Eosinophils 0, Absolute Basophils 0, Platelet Estimate ADEQUATE, Normocytic RBCs VERIFIED, Normochromic RBCs VERIFIED Impression/Plan Impression/Plan Impression/Plan: Impression 87 year old man. * CAP with an associated small pleural effusion and atelectasis - not safe for thoracentesis at the present time * Hx of waldenstroms macroglobulinemia (lymphoplasmacytic lymphoma) * Hx of COPD on spiriva, no pfts or pulmonary outpatient care. Hx of dementia and ht. Presented with chest discomfort and found on CT to have a small left sided pleural effusion with airspace disease. No PE. Plan -f/u chest ultrasound and if any safe pocket for thoracentesis -Rituxan use and immunocompromised state, will monitor -cont abx -trc/nebs -will require outpt pulmonary workup for COPD once clinically stable DVT prophylaxis at all times
--- NOTE | 2017-11-26 12:27 | RADIOLOGY REPORT ---
EXAMINATION: XR PORTABLE CHEST CLINICAL INFORMATION: Effusion. COMPARISON: Prior chest x-ray dated 11/25/2017 and 11/23/2017. CT scan of the chest dated 11/23/2017. TECHNIQUE: Portable AP semierect view of the chest was obtained. FINDINGS: The cardiac silhouette is again partially obscured by a small left-sided pleural effusion, which is seen layering along the lateral chest wall up to the lung apex. Findings are unchanged compared to the prior exam. Underlying left lower lung parenchymal consolidation is suspected. Right lung is fully expanded and and demonstrates minimal subsegmental atelectasis in the medial lung base. Right CP angle is not fully included. Bony structures are unremarkable. IMPRESSION: 1. Small left-sided pleural effusion with associated left basilar lung parenchymal consolidation, unchanged. 2. Mild right basilar subsegmental atelectasis.
[2017-11-26 13:25] VITALS: BP 138/78
--- NOTE | 2017-11-26 15:02 | CT SCAN REPORT ---
CLINICAL HISTORY: This patient is a 87 years old male with left pleural effusion. Left costophrenic thoracentesis is requested. If john pus is encountered, the referring provider is requesting for a chest tube to be left behind. PROCEDURES: 1. Limited CT of the chest. 2. Left diagnostic thoracentesis under CT-guidance. PHYSICIANS: Dr. Kristy Williamson (attending) MONITORING: The procedure was performed under my direct supervision. Continuous blood pressure, pulse oximetry as well as heartrate monitoring was performed by an independent registered nurse. MEDICATIONS: 1. Versed 0 mg and fentanyl 25 IV mcg were administered. 2. Lidocaine 1%, 10 mL, SQ. COMPLICATIONS: None ESTIMATED BLOOD LOSS: <5 mL SPECIMENS: Left pleural fluid IMPLANT: None CONTRAST: None TOTAL DLP: 453.76 mGy-cm SITE MARKING: As part of the preprocedure verification policy, a site marking procedure was initiated. Due to the nature the procedure, the insertion site could not be predetermined thus invoking the policy of exemption to site laterality and marking. Insertion site marking was performed in the procedure room in conjunction with imaging confirmation. PROCEDURE NOTE: Informed consent was obtained from the patient prior to the procedure. During this process, the procedure and potential alternatives were explained along with the intended outcome and benefits. The risks of the procedure, including the possibility of an unsuccessful procedure, as well as the risk of not doing the procedure, were discussed. The patient was given the opportunity to ask questions regarding the procedure and appeared competent to make decisions. A signed consent form documenting this discussion was placed in the medical record. A time-out procedure was performed. The patient was placed in the [place] position on the CT table. A limited CT of the chest was performed to localize the collection and choose appropriate needle access entry point and trajectory. The left chest was prepped and draped in usual sterile fashion. Elements of maximal sterile barrier technique followed including use of cap, mask, sterile gown, sterile gloves, a sterile full body drape and hand hygiene. Also followed skin preparation with 2% chlorhexidine for cutaneous antisepsis, and sterile ultrasound preparation with sterile gel and probe cover when applicable. The skin and subcutaneous tissues were anesthetized with lidocaine. Under CT-guidance, a 5-Fr One Step catheter was advanced into the left pleural fluid. Serous fluid was aspirated. Catheter position within the fluid collection was confirmed by CT evaluation. Approximately 200 mL of left pleural fluid was removed. Samples were sent for the requested studies. The patient tolerated the procedure well. FINDINGS: 1. Fluid collection located in the left chest with CT appearance of simple fluid. 2. Successful diagnostic left thoracentesis. IMPRESSION: Successful drainage of a left pleural effusion, a sample of which was sent to pathology for the requested studies.
--- NOTE | 2017-11-26 15:15 | ULTRASOUND REPORT ---
EXAMINATION: US PLEURAL EFFUSION CLINICAL INFORMATION: Left pleural effusion, community-acquired pneumonia versus malignancy. Assess size for possible diagnostic thoracentesis. COMPARISON: Chest x-ray 11/26/2017 TECHNIQUE: Real-time grayscale examination of the left pleural cavity is performed. FINDINGS: Small to moderate loculated appearing pleural effusion. IMPRESSION: Small to moderate loculated pleural effusion is too small for safe ultrasound-guided thoracentesis.
[2017-11-26 22:35] VITALS: BP 124/70
[2017-11-27 06:44] VITALS: BP 160/90
--- NOTE | 2017-11-27 07:17 | PN- Housestaff ---
Silva SANTOS,German 11/27/17 0716: Subjective Follow-up For: LISETTE Velazquez plueral exudative effusion Subjective: Patient was seen and examined at bedside. He was resting comfortably. He had no acute events overnight. States that he is feeling better today with improvement of his left sided chest pain. Continues to have mild nonproductive cough. He denies any chest pain, shortness of breath, nausea, vomiting, fever, chills. Review of Systems Constitutional: Denies: chills, fever. Cardiovascular: Denies: chest pain, palpitations. Respiratory: Reports: cough. Denies: short of breath, sputum production. Gastrointestinal: Reports: no symptoms. Genitourinary: Reports: no symptoms. Musculoskeletal: Reports: no symptoms. Objective Last 24 Hrs of Vital Signs/I&O Vital Signs Date Time Temp Pulse Resp B/P B/P Pulse O2 O2 Flow FiO2 Mean Ox Delivery Rate 11/27 0644 98.8 84 20 160/90 94 Nasal 2.0L Cannula 11/27 0000 93 Nasal 2.0L Cannula 11/26 2235 98.5 87 19 124/70 94 Nasal 2.0L Cannula 11/26 1655 93 Nasal 2.0L Cannula 11/26 1600 93 Nasal 2.0L Cannula 11/26 1325 98.9 84 20 138/78 92 Nasal 2.0L Cannula 11/26 1106 Nasal 2.0L Cannula 11/26 1041 99.1 84 22 150/78 93 Nasal 2.0L Cannula 11/26 0943 93 Nasal 2.0L Cannula 11/26 0828 22 93 Nasal 2.0L Cannula 11/26 0811 92 154/84 11/26 0800 95 Nasal 3.0L Cannula Intake & Output 11/27 0800 11/27 0000 /05 1600 Intake Total 480 240 Output Total 550 300 Balance -70 -60 Intake, Oral 480 240 Number 1 1 Bowel Movements Output, Urine 550 300 Physical Exam General Appearance: Alert, Cooperative, oriented to person and time but not place Skin Temp/Moisture Exam: Warm/Dry Cardiovascular: Regular Rate, Normal S1, Normal S2 Lungs: rhonchi in L lower lung field improving but still present, bandage in place at the site of thoracentesis, no sign of leakage or saturation, mild TTP of the L sided chest in the mid axillary line, improved from yesterday Abdomen: Normal Bowel Sounds, Soft, No Tenderness Neurological: Normal Speech, Normal Tone, Sensation Intact Extremities: No Clubbing, No Cyanosis, No Edema Vascular: Normal Pulses, Pulses Symmetrical Current Medications: Current Medications Sig/Eduin Start time Last Medication Dose Route Stop Time Status Admin Acetaminophen 1,000 MG Q6P PRN 11/23 2330 AC N/A 1 UNIT IV Acetaminophen 650 MG Q6P PRN 11/23 2315 AC 11/24 PO 1855 Albuterol Sulfate 3 ML BID 11/24 2200 AC 11/26 INH 1650 Aspirin Buffered 81 MG DAILY 11/24 1000 AC 11/26 PO 0810 Azithromycin 500 MG Q24H 11/25 2300 AC 11/26 Dextrose/Water 250 ML IV 2226 Bisacodyl 10 MG Q12P PRN 11/26 0745 AC 11/26 [place] 0822 Ceftriaxone Sodium 1,000 MG DAILY 11/24 1000 AC 11/26 IV 0813 Cholecalciferol 1,000 IU DAILY 11/24 1000 AC 11/26 PO 0811 Docusate Sodium 100 MG DAILY NEEDED PRN 11/24 2000 AC 11/25 PO 0936 Fentanyl Citrate 0 .STK-MED ONE 11/26 1206 DC .ROUTE Heparin Sodium 5,000 UNIT Q8 11/23 2314 AC 11/27 (Porcine) SC 0557 Lidocaine 1 ML .STK-MED ONE 11/26 1253 DC ID 11/26 1254 Lisinopril 5 MG DAILY 11/24 1000 AC 11/26 PO 0811 Midazolam HCl 0 .STK-MED ONE 11/26 1206 DC .ROUTE Patient Medication 1 ED ONE ONE 11/26 1600 DC 11/26 Teaching ED 11/26 1601 2226 Polyethylene Glycol 17 GM DAILY 11/24 1957 AC 11/25 PO 0936 Senna 187 MG AT BEDTIME 11/24 2200 AC 11/26 PO 2226 Sertraline HCl 25 MG DAILY 11/24 1000 AC 11/26 PO 0810 Tiotropium [place] 1 PUF DAILY 11/24 1000 AC 11/26 INH 0812 Last 24 Hrs of Lab/Luis F Results Last 24 Hrs of Labs/Mics: Laboratory Tests 11/26/17 1240: Fluid WBC 3737 H, Fld Total RBCs Counted 1658 H 11/26/17 1240: Lymphocytes 5, % Normal PMNs 46, Misc Hematology Test , Fluid Total Protein 4.0, Fluid LDH 3231 11/26/17 1234: Phlebotomy Draw Site Viry COLE, Pleural pH 7.39 11/26/17 1000: Fluid LDH Cancelled Microbiology 11/26 1240 BODY FLUID: Body Fluid Culture - RECD 11/26 1240 BODY FLUID: Gram Stain - RECD Assessment/Plan Assessment: Patient is an 87-year-old male with a PMH significant for HTN, COPD, Waldenstrom 's macroglobulinemia, and vascular dementiam, who was brought in by ambulance for left-sided chest pain and dyspnea. Patient was in his usual state of health until the evening of admission when he began to have left-sided chest pain shortness of breath. SOB appears to be related to the chest pain due to resolution of SOB with analgesia. CXR showed bibasilar atelectasis left lower lobe opacity with pleural effusion. PE was ruled out with CTA Chest Problem list #CAP with parapneumonic effusion #leukocytosis #Chronic problems including HTN, COPD, Waldenstrom macroglobulinemia on Rituxan, dementia Plan - continue ceftriaxone, DC azithromycin. -alpha strep growing in 1 of 2 blood cultures from 11/23/17 - wean off of O2 as tolerated, decreased from 2 to 1 L O2 NC - TRC/nebs - Patient for CT guided diagnostic Thoracentesis yesterday. Pleural fluid studies indicative of exudate. Currently awaiting culture and cytology results. - Patient is clinically improved today with improvement of chest pain - Possible discharge planning pending resolution of leukocytosis. - Patient will need outpatient pulmonology follow-up for PFTs. Diet: heart healthy diet DVT prophylaxis: Subcutaneous heparin, ALPS CODE STATUS: DNR/DNI Problem List: 1. Pneumonia 2. Parapneumonic effusion Pain Ratin Pain Location: none Pain Goal: Remain pain free Pain Plan: pain pathway Tomorrow's Labs & Rationales: cbc Sarahy Leung MD 11/27/17 1143: Attending MD Review Statement Attending Statement Attending MD Statement: examined this patient, discuss w/resident/PA/CHOPPER GUN OPERATOR, agreed w/resident/PA/CHOPPER GUN OPERATOR, reviewed EMR data (avail) Attending Assessment/Plan: 87M PMH Waldenstrom's macroglobulinemia, COPD admitted for left sided pneumonia with parapneumonic effusion, being treated with Ceftriaxone and Azithromycin, steadily improving. Has a productive cough today, feels about the same as yesterday, remains afebrile. Thoracentesis reveals exudate. 1. LLL pneumonia 2. Parapneumonic effusion 3. COPD exacerbation 4. Waldenstrom's macroglobulinemia Plan - Continue on general medicine - Follow cultures - Continue antibiotics - Continue Solumedrol - Pulmonary consult - Continue home medications - DVT PPx - anticipated discharge tomorrow if continues to improve
[2017-11-27 08:03] LABS: ABSOLUTE BASOPHIL COUNT 0 /CUMM (0.0-0.2); ABSOLUTE EOSINOPHIL COUNT 0 /CUMM (0.0-0.7); ABSOLUTE GRANULOCYTE CT 15.2 /CUMM (1.4-6.5); ABSOLUTE LYMPH COUNT 0.8 /CUMM (1.2-3.4); ABSOLUTE MONOCYTE COUNT 0.7 /CUMM (0.10-0.60); BASOPHIL % 0.2 % (0.0-2.0); EOSINOPHIL % 0.1 % (0-5); GRANULOCYTE % 90.8 % (42.2-75.2); HEMATOCRIT 39.3 % (42-52); MEAN CORPUSCULAR HGB CONC 33.5 G/DL (33.0-37.0); MEAN CORPUSCULAR VOLUME 86.4 FL (80.0-94.0); MEAN PLATELET VOLUME 8.9 FL (7.4-10.4); PLATELET COUNT 352 /CUMM (130-400); RBC DISTRIBUTION WIDTH 14.5 % (11.5-14.5); RED BLOOD CELL CT 4.55 /CUMM (4.70-6.10); WHITE BLOOD CELL COUNT 16.7 /CUMM (4.8-10.8)
--- NOTE | 2017-11-27 11:23 | PN- Pulmonary ---
Subjective HPI/Critical Care Issues: Patient seen and examined this morning. He had an exudative simple confusion Objective Current Medications: Current Medications Sig/Eduin Start time Last Medication Dose Route Stop Time Status Admin Acetaminophen 1,000 MG Q6P PRN 11/23 2330 AC N/A 1 UNIT IV Acetaminophen 650 MG Q6P PRN 11/23 2315 AC 11/24 PO 1855 Albuterol Sulfate 3 ML BID 11/24 2200 AC 11/27 INH 0802 Aspirin Buffered 81 MG DAILY 11/24 1000 AC 11/27 PO 0912 Azithromycin 500 MG Q24H 11/25 2300 DC 11/26 Dextrose/Water 250 ML IV 2226 Bisacodyl 10 MG Q12P PRN 11/26 0745 AC 11/26 WI 0822 Ceftriaxone Sodium 1,000 MG DAILY 11/24 1000 AC 11/27 IV 0913 Cholecalciferol 1,000 IU DAILY 11/24 1000 AC 11/27 PO 0913 Docusate Sodium 100 MG DAILY NEEDED PRN 11/24 2000 AC 11/25 PO 0936 Fentanyl Citrate 0 .STK-MED ONE 11/26 1206 DC .ROUTE Heparin Sodium 5,000 UNIT Q8 11/23 2314 AC 11/27 (Porcine) SC 0557 Lidocaine 1 ML .STK-MED ONE 11/26 1253 DC ID 11/26 1254 Lisinopril 5 MG DAILY 11/24 1000 AC 11/27 PO 0913 Midazolam HCl 0 .STK-MED ONE 11/26 1206 DC .ROUTE Patient Medication 1 ED ONE ONE 11/26 1600 DC 11/26 Teaching ED 11/26 1601 2226 Polyethylene Glycol 17 GM DAILY 11/24 1957 AC 11/27 PO 0912 Senna 187 MG AT BEDTIME 11/24 2200 AC 11/26 PO 2226 Sertraline HCl 25 MG DAILY 11/24 1000 AC 11/27 PO 0913 Tiotropium [place] 1 PUF DAILY 11/24 1000 AC 11/27 INH 0913 Vital Signs & I&O Last 24 Hrs of Vitals and I&O: Vital Signs Date Time Temp Pulse Resp B/P B/P Pulse O2 O2 Flow FiO2 Mean Ox Delivery Rate 11/27 912 84 160/90 / 0804 93 Nasal 1.0L Cannula 11/27 08 94 Nasal 2.0L Cannula 11/27 0644 98.8 84 20 160/90 94 Nasal 2.0L Cannula 11/27 0000 93 Nasal 2.0L Cannula 11/26 2235 98.5 87 19 124/70 94 Nasal 2.0L Cannula 11/26 1655 93 Nasal 2.0L Cannula 11/26 1600 93 Nasal 2.0L Cannula 11/26 1325 98.9 84 20 138/78 92 Nasal 2.0L Cannula Intake & Output 11/27 1600 11/27 0800 03 0000 Intake Total 240 480 Output Total 250 550 Balance -10 -70 Intake, Oral 240 480 Number 0 1 Bowel Movements Output, Urine 250 550 Patient 209 lb Weight Exam Other Physical Findings: Generally - Awake, alert and comfortable without distress Head and neck - normocephalic, atraumatic, EOMI grossly intact Cardiovascular - S1, S2, no murmurs, rubs or gallops Lungs - diminished bs at left base, rare rhonchi Abdomen - Bowel sounds positive, soft, non-tender Extremities - without edema Results Last 24 Hrs of Lab Results: Laboratory Tests 11/27/17 0625: Anion Gap 13, Estimated GFR > 60, BUN/Creatinine Ratio 37.1 H, CBC w Diff MAN DIFF ORDERED, RBC 4.55 L, MCV 86.4, MCH 29.0, MCHC 33.5, RDW 14.5, MPV 8.9, Gran % 90.8 H, Lymphocytes % 4.7 L, Monocytes % 4.2, Eosinophils % 0.1, Basophils % 0.2, Absolute Granulocytes 15.2 H, Segmented Neutrophils 83 H, Band Neutrophils 5, Absolute Lymphocytes 0.8 L, Lymphocytes 6 L, Monocytes 6, Absolute Monocytes 0.7 H, Absolute Eosinophils 0, Absolute Basophils 0, Platelet Estimate VERIFIED BY SMEAR, Normocytic RBCs VERIFIED, Normochromic RBCs VERIFIED 11/26/17 1240: Fluid WBC 3737 H, Fld Total RBCs Counted 1658 H 11/26/17 1240: Lymphocytes 5, % Normal PMNs 46, Misc Hematology Test , Fluid Total Protein 4.0, Fluid LDH 3231 11/26/17 1234: Phlebotomy Draw Site Viry COLE, Pleural pH 7.39 Impression/Plan Impression/Plan Impression/Plan: Impression 87 year old man. * CAP with an associated small pleural effusion and atelectasis - not safe for thoracentesis at the present time * Hx of waldenstroms macroglobulinemia (lymphoplasmacytic lymphoma) * Hx of COPD on spiriva, no pfts or pulmonary outpatient care. Hx of dementia and ht. Presented with chest discomfort and found on CT to have a small left sided pleural effusion with airspace disease. No PE. Plan -f/u cytology for his exudative effusion -Rituxan use and immunocompromised state, will monitor -cont abx -trc/nebs -will require outpt pulmonary workup for COPD once clinically stable DVT prophylaxis at all times
--- NOTE | 2017-11-27 11:27 | Discharge Summary ---
Visit Information Visit Dates Admission Date: 11/23/17 Discharge Date: 11/28/17 Hospital Course Course Attending Physician: Sarahy Leung MD Primary Care Physician: Omar SANTOS,[facility] Course: Patient is an 87-year-old male with a PMH significant for HTN, COPD, Waldenstrom 's macroglobulinemia, and vascular dementia, who was brought in by ambulance for left-sided chest pain and dyspnea. Patient was in his usual state of health until the evening of admission when he developed a sudden onset of left-sided chest pain and shortness of breath which appeared to be related to the chest pain and resolved with analgesia. No hx of fevers or chills, chest trauma, nausea, vomiting, diarrhea, or sick contacts. He has a baseline nonproductive cough and wheezing which have not changed. Patient gets rituximab every other month from [facility] for his Waldenstrom's macroglobulinemia. Vitals: T max 99.3, pulse 104, RR 26, blood pressure 140/ 100 on arrival improved to 132/65, saturating 94% on 2 L nasal cannula On exam: A O 2, cooperative, no acute distress, neck supple, JVD normal, no lymphadenopathy, mucosa dry, no focal neurological deficit, trace leg edema, no obvious skin rashes or inflammation CVS: S1-S2, RRR. RS: Rhonchi left base, no obvious wheezing. Abdomen: Soft, NT, ND, bowel sounds present. Chest x-ray consistent with possible left lower lobe consolidation and atelectasis CTA chest, CT abdomen and pelvis with IV contrast: No CT evidence for pulmonary embolism. Lvusk-me-rsylidko left pleural effusion with associated airspace disease. No focal inflammatory process or obstruction. Cholelithiasis. Diffuse fatty infiltration of liver. Incompletely descended left testicle, unchanged. Small left basilar consolidation and pleural effusion. Assessment and plan #Left lower lobe community acquired pneumonia Patient was empiricallly started on IV ceftriaxone and Azithromycin while waiting of blood culture results which came back positive for alpha-streptococci in one set; azithromycin was stopped and ceftriaxone continued. Patient was not able to produce any sputum for culture, rapid viral influenza was negative, strep pneumonia and legionella antigens were also negative. WBC count in improving but not yet normalized. Please recheck CBC and CXR in a 1 week (11/07/17) to ensure normalization of WBC as count is still elevated and resolution of pneumonia. however patient is clinically markedly improved and has remained afebrile. Blood cultures repeated on 11/28/17; Please follow up culture results and treat as appropriate. Patient has completed 5 days of IV ceftriaxone and will be discharged on Augmentin 875mg BID for a total of 2 weeks of therapy. #Left pleural effusion Patient got a CT guided diagnostic thoracentesis. Pleural fluid studies indicative of an exudate. Currently awaiting cytology results. Preliminary culture results negative, follow up final culture results as outpatient. #Chronic diseases-HTN, COPD, dementia, Waldenstrm's macroglobulinemia on rituximab all stable. Continue his home medications. Patient will need outpatient pulmonology follow-up for PFTs. Patient is going to [facility] Complications: See HPI Allergies: Coded Allergies: No Known Allergies (11/23/17) Significant Procedures: CT guided diagnostic Thoracentesis Pertinent Lab Results: see HPI for admission labs Discharge labs below- Laboratory Tests 11/28/17611: CBC w Diff NO MAN DIFF REQ, RBC 4.56 L, MCV 86.3, MCH 29.1, MCHC 33.7, RDW 14.4 , MPV 9.1, Gran % 85.5 H, Lymphocytes % 6.9 L, Monocytes % 6.7, Eosinophils % 0.2, Basophils % 0.7, Absolute Granulocytes 14.4 H, Absolute Lymphocytes 1.2, Absolute Monocytes 1.1 H, Absolute Eosinophils 0, Absolute Basophils 0.1 Microbiology 11/29 903 BLOOD: Blood Culture - ORD 11/29 903 BLOOD: Blood Culture - ORD Laboratory Tests 11/29 611 Hematology CBC w Diff NO MAN DIFF REQ WBC (4.8 - 10.8 /CUMM) 16.8 H RBC (4.70 - 6.10 /CUMM) 4.56 L Hgb (14.0 - 18.0 G/DL) 13.3 L Hct (42 - 52 %) 39.3 L MCV (80.0 - 94.0 FL) 86.3 MCH (27.0 - 31.0 PG) 29.1 MCHC (33.0 - 37.0 G/DL) 33.7 RDW (11.5 - 14.5 %) 14.4 Plt Count (130 - 400 /CUMM) 367 MPV (7.4 - 10.4 FL) 9.1 Gran % (42.2 - 75.2 %) 85.5 H Lymphocytes % (20.5 - 51.1 %) 6.9 L Monocytes % (1.7 - 9.3 %) 6.7 Eosinophils % (0 - 5 %) 0.2 Basophils % (0.0 - 2.0 %) 0.7 Absolute Granulocytes (1.4 - 6.5 /CUMM) 14.4 H Absolute Lymphocytes (1.2 - 3.4 /CUMM) 1.2 Absolute Monocytes (0.10 - 0.60 /CUMM) 1.1 H Absolute Eosinophils (0.0 - 0.7 /CUMM) 0 Absolute Basophils (0.0 - 0.2 /CUMM) 0.1 Laboratory Tests Vital Signs Date Time Temp Pulse Resp B/P B/P Pulse O2 O2 Flow FiO2 Mean Ox Delivery Rate 11/29 0729 93 Room Air 11/28 0800 92 Room Air 11/28 0740 86 130/68 / 0731 98.9 86 20 130/68 /07 0557 99.5 86 20 130/68 92 Room Air /07 0000 Room Air / 2042 99.1 93 18 142/70 92 Room Air / 2015 92 Room Air Room Air /06 1600 Room Air / 1429 99.8 108 20 138/76 93 Room Air / 1155 96 Room Air / 1151 96 Room Air Disposition Summary Disposition Principal Diagnosis: Community acquired Pneumonia Additional Diagnosis: parapneumonic effusion, group A strep bacteremia Discharge Disposition: home or self care Discharge Instructions General Discharge Information Code Status: Do Not Resucitate/Intubat Patient's Diet: Heart Healthy Patient's Activity: As tolerated Follow-Up Instructions/Appts: Please follow-up with your primary care physician within 1 week of discharge. Follow-up with Dr. Isaac Babcock within 1-2 weeks of discharge to establish pulmonary care and to get PFTs to assess COPD. Take all medications as directed. Call your doctor or return to the ER if you have worsening shortness of breath, chest pain, lightheadedness, or loss of consciousness. Medications at Discharge Discharge Medications: Continue taking these medications: Tiotropium [place] (Spiriva) 18 MCG CAP.W.DEV 1 Capsule Inhale through mouth DAILY Qty = 90 Comments: Last Taken:11/28/17 Time: 0745AM Lisinopril (Lisinopril) 5 MG TABLET 1 Tablet ORAL DAILY Qty = 90 Comments: Last Taken: 11/28/17 Time: 0745AM Sertraline HCl (Sertraline HCl) 25 MG TABLET 1 Tablet ORAL DAILY Qty = 90 Comments: Last Taken: 11/28/17 Time: 0745AM Aspirin (Ecotrin*) 81 MG TABLET.DR 1 Tablet ORAL DAILY Comments: Last Taken: 11/28/17 Time: 0745AM Cholecalciferol (Vitamin D3) (Vitamin D) (Unknown Strength) CAPSULE 1,000 International Unit ORAL DAILY Comments: Last Taken: 11/28/17 Time: 0740AM Start taking the following new medications: Amoxicillin/Potassium Clav (Augmentin 875-125 Tablet) 875 MG-125 MG TABLET 1 Tablet ORAL TWICE DAILY Qty = 20 No Refills Comments: IV ROCEPHIN GIVEN 11/28/17 @0745AM Copies To: Omar SANTOS,Pedrito Attending MD Review Statement Documenting Attending: Cirilo Bose MD Other Findings: The patient was seen on the day of discharge for Dr. Leung. Agree with the plan of care as outlined.
--- NOTE | 2017-11-27 11:52 | Patient Discharge Instructions ---
Discharge Instructions General Discharge Information You were seen/treated for: Pneumonia Parapneumonic effusion You had these procedures: thoracentesis Special Instructions: Please follow-up with your primary care physician within 1 week of discharge. Follow-up with Dr. Isaac Babcock within 1-2 weeks of discharge to establish pulmonary care and to get PFTs to assess COPD. Take all medications as directed. Call your doctor or return to the ER if you have worsening shortness of breath, chest pain, lightheadedness, or loss of consciousness. Acute Coronary Syndrome Inclusion Criteria At DC or during hospital stay patient has or had the following: ACS DIAGNOSIS No Discharge Core Measures Meds if any: Prescribed or Continued at Discharge Meds if any: NOT Prescribed or Continued at Discharge Congestive Heart Failure Inclusion Criteria At DC or during hospital stay patient has or had the following: CHF DIAGNOSIS No Discharge Core Measures Meds if any: Prescribed or Continued at Discharge Meds if any: NOT Prescribed or Continued at Discharge Cerebrovascular accident Inclusion Criteria At DC or during hospital stay patient has or had the following: CVA/TIA Diagnosis No Discharge Core Measures Meds if any: Prescribed or Continued at Discharge Meds if any: NOT Prescribed or Continued at Discharge Venous thromboembolism Inclusion Criteria VTE Diagnosis No VTE Type NONE VTE Confirmed by (Test) NONE Discharge Core Measures - Per Current guidelines, there needs to be overlap - treatment for the first 5 days of Warfarin therapy. - If discharged on Warfarin prior to 5 days of - overlap therapy, the patient will need to be - assessed for post discharge needs including - *Post discharge parental anticoagulation - *Warfarin and/or parental anticoagulation education - *Follow up date to check INR post discharge At least 5 days overlap therapy as Inpatient No Meds if any: Prescribed or Continued at Discharge Note: Overlap Therapy is Warfarin and Anticoagulant Meds if any: NOT Prescribed or Continued at Discharge
[2017-11-27] MEDS ORDERED: AUGMENTIN 875-1 EACH PO (13:25)
[2017-11-27 14:29] VITALS: BP 138/76
[2017-11-27 20:42] VITALS: BP 142/70
[2017-11-28 05:57] VITALS: BP 130/68
--- NOTE | 2017-11-28 07:26 | PN- Housestaff ---
Silva SANTOS,German 11/28/17 0725: Subjective Follow-up For: pnuemonia with parapneumonic effusion Subjective: Patient was seen and examined at bedside. He was resting comfortably. He has tolerated weaning off of oxygen well. He continues to complain of his cough which is chronic. He has no chest pain at rest, and denies any shortness of breath, nausea, vomiting, fever, chill. Review of Systems Constitutional: Denies: chills, fever. Cardiovascular: Denies: chest pain, palpitations. Respiratory: Reports: cough. Denies: short of breath, sputum production, wheezing. Gastrointestinal: Reports: no symptoms. Genitourinary: Reports: no symptoms. Musculoskeletal: Reports: no symptoms. Skin: Reports: no symptoms. Objective Last 24 Hrs of Vital Signs/I&O Vital Signs Date Time Temp Pulse Resp B/P B/P Pulse O2 O2 Flow FiO2 Mean Ox Delivery Rate 11/28 0557 99.5 86 20 130/68 92 Room Air 11/28 0000 Room Air 11/27 2042 99.1 93 18 142/70 92 Room Air 11/27 2015 92 Room Air Room Air 11/27 1600 Room Air 11/27 1429 99.8 108 20 138/76 93 Room Air 11/27 1155 96 Room Air 11/27 1151 96 Room Air 11/27 0913 84 160/90 11/27 0900 94 Nasal 1.0L Cannula 11/27 0804 93 Nasal 1.0L Cannula 11/27 0800 94 Nasal 2.0L Cannula Intake & Output 11/28 0800 03/ 0000 11/27 1600 Intake Total 240 800 240 Output Total 500 450 250 Balance -260 350 -10 Intake, Oral 240 800 240 Output, Urine 500 450 250 Patient 213 lb Weight Physical Exam General Appearance: Alert, Cooperative, No Acute Distress Skin Temp/Moisture Exam: Warm/Dry Cardiovascular: Regular Rate, Normal S1, Normal S2 Lungs: rhonchi in the L lower lung field, continues to improve Abdomen: Normal Bowel Sounds, Soft, No Tenderness Current Medications: Current Medications Sig/Eduin Start time Last Medication Dose Route Stop Time Status Admin Acetaminophen 1,000 MG Q6P PRN 11/23 2330 AC N/A 1 UNIT IV Acetaminophen 650 MG Q6P PRN 11/23 2315 AC 11/24 PO 1855 Albuterol Sulfate 3 ML BID 11/24 2200 AC 11/27 INH 2012 Aspirin Buffered 81 MG DAILY 11/24 1000 AC 11/27 PO 0912 Azithromycin 500 MG Q24H 11/25 2300 DC 11/26 Dextrose/Water 250 ML IV 2226 Bisacodyl 10 MG Q12P PRN 11/26 0745 AC 11/26 WI 0822 Ceftriaxone Sodium 1,000 MG DAILY 11/24 1000 AC 11/27 IV 0913 Cholecalciferol 1,000 IU DAILY 11/24 1000 AC 11/27 PO 0913 Docusate Sodium 100 MG DAILY NEEDED PRN 11/24 2000 AC 11/25 PO 0936 Heparin Sodium 5,000 UNIT Q8 11/23 2314 AC 11/28 (Porcine) SC 0510 Lisinopril 5 MG DAILY 11/24 1000 AC 11/27 PO 0913 Patient Medication 1 ED ONE ONE 11/27 1345 DC 11/27 Teaching ED 11/27 1346 1724 Polyethylene Glycol 17 GM DAILY 11/24 1957 AC 11/27 PO 0912 Senna 187 MG AT BEDTIME 11/24 2200 AC 11/27 PO 2030 Sertraline HCl 25 MG DAILY 11/24 1000 AC 11/27 PO 0913 Tiotropium [place] 1 PUF DAILY 11/24 1000 AC 11/27 INH 0913 Last 24 Hrs of Lab/Luis F Results Last 24 Hrs of Labs/Mics: Laboratory Tests 11/28/17 0612: CBC w Diff Pending, WBC Pending, RBC Pending, Hgb Pending, Hct Pending, MCV Pending, MCH Pending, MCHC Pending, RDW Pending, Plt Count Pending, MPV Pending Assessment/Plan Assessment: Patient is an 87-year-old male with a PMH significant for HTN, COPD, Waldenstrom 's macroglobulinemia, and vascular dementiam, who was brought in by ambulance for left-sided chest pain and dyspnea. Patient was in his usual state of health until the evening of admission when he began to have left-sided chest pain shortness of breath. SOB appears to be related to the chest pain due to resolution of SOB with analgesia. CXR showed bibasilar atelectasis left lower lobe opacity with pleural effusion. PE was ruled out with CTA Chest Problem list #CAP with parapneumonic effusion #leukocytosis, improving #Chronic problems including HTN, COPD, Waldenstrom macroglobulinemia on Rituxan, dementia Plan -patient is stable for DC to STR -Will DC on a 10 day course of Augmentin to complete a 2 week course of antibiotics. -alpha strep growing in 1 of 2 blood cultures from 11/23/17 - hast tolerated being on room air well - TRC/nebs - will follow-up pleural fluid culture, and cytology - recommend to have CBC and CXR checked within 1 week of discharge - Patient will need outpatient pulmonology follow-up for PFTs. Diet: heart healthy diet DVT prophylaxis: Subcutaneous heparin, ALPS CODE STATUS: DNR/DNI Problem List: 1. COPD (chronic obstructive pulmonary disease) 2. Parapneumonic effusion 3. Pneumonia Pain Ratin Pain Location: none Pain Goal: Remain pain free Pain Plan: pain pathway Tomorrow's Labs & Rationales: none Discharge Plan Discharge Disposition: STR/NH Stable for Discharge? Yes Anticipated Discharge (Day): today If Discharged Today/In 24 Hrs: enter antc discharge ord, DC summary done, CMR done Cirilo Bose MD 11/28/17 1719: Attending MD Review Statement Attending Statement Attending MD Statement: examined this patient, discuss w/resident/PA/FUNCTIONAL CONSULTANT, agreed w/resident/PA/FUNCTIONAL CONSULTANT, reviewed EMR data (avail), discussed with case mgmt, amended to note Attending Assessment/Plan: The patient was seen and discussed with house staff. OK to discharge to STR today ([facility]). Will continue Abx x total 14 days, repeat BC today (grew alpha strep). Follow-up as OP.
[2017-11-28 07:31] VITALS: BP 130/68
[2017-11-28 07:40] VITALS: BP 130/68
[2017-11-28 08:08] LABS: ABSOLUTE BASOPHIL COUNT 0.1 /CUMM (0.0-0.2); ABSOLUTE EOSINOPHIL COUNT 0 /CUMM (0.0-0.7); ABSOLUTE GRANULOCYTE CT 14.4 /CUMM (1.4-6.5); ABSOLUTE LYMPH COUNT 1.2 /CUMM (1.2-3.4); ABSOLUTE MONOCYTE COUNT 1.1 /CUMM (0.10-0.60); BASOPHIL % 0.7 % (0.0-2.0); EOSINOPHIL % 0.2 % (0-5); HEMATOCRIT 39.3 % (42-52); MEAN CORPUSCULAR HGB 29.1 PG (27.0-31.0); MEAN CORPUSCULAR HGB CONC 33.7 G/DL (33.0-37.0); MEAN CORPUSCULAR VOLUME 86.3 FL (80.0-94.0); MEAN PLATELET VOLUME 9.1 FL (7.4-10.4); PLATELET COUNT 367 /CUMM (130-400); RBC DISTRIBUTION WIDTH 14.4 % (11.5-14.5); RED BLOOD CELL CT 4.56 /CUMM (4.70-6.10); WHITE BLOOD CELL COUNT 16.8 /CUMM (4.8-10.8)
[2017-11-28] MEDS ORDERED: AUGMENTIN 875-1 EACH PO (09:05)
[2017-11-28 09:14] LABS: GRANULOCYTE % 85.5 % (42.2-75.2)
--- NOTE | 2017-11-28 10:25 | PN- Pulmonary ---
Subjective HPI/Critical Care Issues: pt seen and examined doing better wbc 16 awaiting dc Objective Current Medications: Current Medications Sig/Eduin Start time Last Medication Dose Route Stop Time Status Admin Acetaminophen 1,000 MG Q6P PRN 11/23 2330 AC N/A 1 UNIT IV Acetaminophen 650 MG Q6P PRN / 2315 AC 11/24 PO 1855 Albuterol Sulfate 3 ML BID 11/24 2200 AC 11/28 INH 0825 Aspirin Buffered 81 MG DAILY 11/24 1000 AC 11/28 PO 0740 Bisacodyl 10 MG Q12P PRN 11/26 0745 AC 11/26 ME 0822 Ceftriaxone Sodium 1,000 MG DAILY 11/24 1000 DC 11/28 IV 0737 Cholecalciferol 1,000 IU DAILY 11/24 1000 AC 11/28 PO 0738 Docusate Sodium 100 MG DAILY NEEDED PRN 11/24 2000 AC 11/25 PO 0936 Heparin Sodium 5,000 UNIT Q8 11/23 2314 AC 11/28 (Porcine) SC 0510 Lisinopril 5 MG DAILY 11/24 1000 AC 11/28 PO 0740 Patient Medication 1 ED ONE ONE 11/28 1030 Teaching ED 11/28 1031 Patient Medication 1 ED ONE ONE 11/27 1345 DC 11/27 Teaching ED 11/27 1346 1724 Polyethylene Glycol 17 GM DAILY 11/24 1957 AC 11/28 PO 0740 Senna 187 MG AT BEDTIME 11/24 2200 AC 11/27 PO 2030 Sertraline HCl 25 MG DAILY 11/24 1000 AC 11/28 PO 0740 Tiotropium [place] 1 PUF DAILY 11/24 1000 AC 11/28 INH 0738 Vital Signs & I&O Last 24 Hrs of Vitals and I&O: Vital Signs Date Time Temp Pulse Resp B/P B/P Pulse O2 O2 Flow FiO2 Mean Ox Delivery Rate 11/28 0829 93 Room Air 11/28 0800 92 Room Air / 0740 86 130/68 /07 0731 98.9 86 20 130/68 /07 0557 99.5 86 20 130/68 92 Room Air /07 0000 Room Air 11/27 2042 99.1 93 18 142/70 92 Room Air 11/27 2014 92 Room Air Room Air 11/27 1600 Room Air 11/27 1429 99.8 108 20 138/76 93 Room Air 11/27 1155 96 Room Air 11/27 1151 96 Room Air Intake & Output 11/28 1600 11/28 0800 11/28 0000 Intake Total 480 800 Output Total 500 450 Balance -20 350 Intake, Oral 480 800 Number 0 Bowel Movements Output, Urine 500 450 Patient 213 lb 213 lb Weight Exam Other Physical Findings: Generally - Awake, alert and comfortable without distress Head and neck - normocephalic, atraumatic, EOMI grossly intact Cardiovascular - S1, S2, no murmurs, rubs or gallops Lungs - diminished bs at left base, rare rhonchi Abdomen - Bowel sounds positive, soft, non-tender Extremities - without edema Results Last 24 Hrs of Lab Results: Laboratory Tests 11/28/17 06: CBC w Diff NO MAN DIFF REQ, RBC 4.56 L, MCV 86.3, MCH 29.1, MCHC 33.7, RDW 14.4 , MPV 9.1, Gran % 85.5 H, Lymphocytes % 6.9 L, Monocytes % 6.7, Eosinophils % 0.2, Basophils % 0.7, Absolute Granulocytes 14.4 H, Absolute Lymphocytes 1.2, Absolute Monocytes 1.1 H, Absolute Eosinophils 0, Absolute Basophils 0.1 Impression/Plan Impression/Plan Impression/Plan: Impression 87 year old man. * CAP with an associated small pleural effusion and atelectasis - not safe for thoracentesis at the present time * Hx of waldenstroms macroglobulinemia (lymphoplasmacytic lymphoma) * Hx of COPD on spiriva, no pfts or pulmonary outpatient care. Hx of dementia and ht. Presented with chest discomfort and found on CT to have a small left sided pleural effusion with airspace disease. No PE. Plan -f/u cytology for his exudative effusion -Rituxan use and immunocompromised state, will monitor -cont abx course of 2 weeks (alpha strep) -check cxr and cbc next week -trc/nebs -will require outpt pulmonary workup for COPD once clinically stable DVT prophylaxis at all times
== END 2017-11-28 10:13 | DRG 194 ==
LOC: ERH 19:50 → 2NB 22:49 → ERHI 22:49 → 2NB 22:49 → ENRESERV 23:04 → 2NB 23:38 → ENPENDDIS 11-28 09:12 → 2NB 11-28 10:13
PROVIDERS: Dermatology; Emergency Medicine; Internal Medicine; Student in an Organized Health Care Education/Training Program
PROC: 0W9B3ZZ Drainage of Left Pleural Cavity, Percutaneous Approach (ICD-10-PCS; principal; 2017-11-26)
DX: J18.9 Pneumonia, unspecified organism (principal); J91.8 Pleural effusion in other conditions classified elsewhere; I67.2 Cerebral atherosclerosis; F01.50 Vascular dementia, unspecified severity, without behavioral disturbance, psychotic disturbance, mood disturbance, and anxiety; C88.0 Waldenstrom macroglobulinemia; J44.9 Chronic obstructive pulmonary disease, unspecified; J98.11 Atelectasis; F03.90 Unspecified dementia, unspecified severity, without behavioral disturbance, psychotic disturbance, mood disturbance, and anxiety
CPT/HCPCS: 2NBSP; 87075; 36415; 36592; 71045; 71046; 74177; 82436; 87040; 87070; 87071; 87449; 87450; 87804; 87804-59; 88305; 93005; 93010; 96374; 96375; 96376; 97116-GO; 97161-GP; 99291; J0456; J0696; J1644; J1885; J2920; J2930; J3490; J7040; J7060